=== PATIENT | female | born 1960 | race Caucasian/White ===

== ENCOUNTER 2018-03-13 21:27 | Emergency (ER) | payer BC, SELFPAY ==
[2018-03-13 21:28] VITALS: BP 141/82; PULSE 80; RESP 18; TEMP 36.4; O2SAT 98; BMI 27.9
[2018-03-13 21:56] VITALS: O2SAT 95
[2018-03-13] MEDS: Aspirin 81 MG TAB.CHEW 324 MG PO (21:57)
[2018-03-13] MEDS: 0.9% Normal Saline 1,000 ML 150 ML IV (21:57)
[2018-03-13 22:07] LABS: Absolute Lymphocyte Count 3.06 X10^3/ul (0.83-4.51); Absolute Neutrophil Count 4.7 X10^3/uL (2.0-7.7); Basophil# 0.04 X10^3/uL; Basophil% 0.5 % (0-1); Eosinophil# 0.37 X10^3/uL; Eosinophils% 4.3 % (0-5); Hematocrit 41.7 % (37-47); Hemoglobin 14.1 g/dl (12.0-15.0); Lymphocyte # 3.06 X10^3/ul (4.0); Lymphocyte % 35.7 % (19-41); Mean Corp Hgb Conc 33.8 g/gl (32-36); Mean Corpuscular Hgb 30.7 pg (27.0-32.0); Mean Corpuscular Volume 90.8 fL (81-99); Mean Platelet Vol. 8.6 fl (6.2-12.0); Monocyte# 0.43 X10^3/uL; Neutrophil # 4.65 X10^3/uL (2.7-7.7); Neutrophil % 54.4 % (47-70); Platelet Count 305 K/mm3 (150-450); RBC Distribution Width CV 12.8 % (11.6-14.6); RBC Distribution Width SD 42.4 fl (35.1-43.9); Red Blood Count 4.59 M/mm3 (4.2-5.4); White Blood Count 8.6 K/mm3 (4.4-11.0)
[2018-03-13 22:10] LABS: Differential Indicated SCAN CRITERIA MET; POSITIVE COUNT NO; POSITIVE DIFFERENTIAL NO; POSITIVE MORPHOLOGY YES
[2018-03-13 22:28] VITALS: BP 134/58; PULSE 87; RESP 22; O2SAT 97
[2018-03-13 22:32] LABS: Anion Gap 7 (5-15); BUN 16 mg/dL (7-18); BUN/Creat Ratio 21.1 RATIO (10-20); Calcium,Total 9.1 mg/dL (8.5-10.1); Chloride 106 mmol/L (98-107); Creatinine, Serum 0.76 mg/dL (0.55-1.02); EST Glomerular Filtration Rate 84 mL/min (>60); Est Glom Filt Rate - Afr Amer 102 mL/min (>60); Estimated Creatinine Clearance 84.37 ml/min; Glucose 121 mg/dL (74-106); Potassium 3.8 mmol/L (3.5-5.1); Sodium Level 142 mmol/L (136-145)
[2018-03-13 23:00] VITALS: BP 130/73; PULSE 64; RESP 14; O2SAT 96
--- NOTE | 2018-03-13 23:16 | ED.VISSUMM ---
- ER Visit Summary Date of Service: 03/13/18 Chief Complaint: Chest pain History of Present Illness: The patient is a [address] Wall and Dr. Britt. She reports that approximately an hour ago she had the onset of a substernal pressure. States that it lasted approximately 5 minutes. Was 5 out of 10 at worst and she is pain-free currently. It was worsened by nothing. She reports that it was relieved by walking around. She denies any associated nausea, vomiting, shortness of breath, or diaphoresis. However, she does report that she has been nauseated throughout the day today. Patient has a history of coronary disease and has 6 stents. She reports her last heart catheterization was approximately 2 years ago. Her last stress test was approximately 1 year ago. Physical Examination: Vitals: Stable. Afebrile. General: Well-nourished and well-developed. Head: Normocephalic atraumatic. Neck: Supple, no lymphadenopathy. No JVD. Nontender. Cardiovascular: Regular rate and rhythm. No murmurs. Respiratory: No respiratory distress. Clear to auscultation bilaterally. Abdominal: Soft, nontender, nondistended, normal bowel sounds. No guarding, rebound, or peritoneal signs. Back: Nontender. Extremities: Nontender, no edema. Skin: Normal color, no rash. Neurologic: Alert and oriented ?3. Cranial nerves II through XII are intact. Normal strength and sensation. Psych: Normal affect. Test Results: EKG is sinus at [address] changes. Troponins negative. Chem-7 is more for glucose 121. CBC is normal. Chest x-ray is normal. Emergency Department Course and Treatment: Patient was treated with a dose of aspirin. She is remained pain-free while here. Treatment Plan: Patient was discussed with the hospitalist. She will be admitted for further evaluation and treatment. Disposition: Admitted in improved condition. Impression: 1. Chest pain. 2. JACINTO score 3. This note was generated with [employer] dictation software. It may contain incorrect words, spelling, and punctuation that were not noted in review of the chart prior to signing ED Disposition - Plan for ED Patient: Chief Complaint: Chest Pain Referrals: Sam Britt MD [Primary Care Provider] -
--- NOTE | 2018-03-14 | ED.DEP ---
ED Disposition - Plan for ED Patient: Chief Complaint: Chest Pain Instructions: ED Chest Pain Atypical Unkn Cause Referrals: Herve Wall MD [STAFF PHYSICIAN] - As soon as possible
[2018-03-14 00:08] VITALS: BP 130/73; PULSE 63; RESP 18; O2SAT 97
--- NOTE | 2018-03-14 00:09 | ED.RN ---
PT CHOOSING TO LEAVE AMA. DR. TAVAREZ PREVIOUSLY AT BEDSIDE TO DISCUSS THIS IN DETAIL. REVIEWED D/C INSTRUCTIONS, FOLLOW UP CARE, AND S/S THAT WOULD WARRANT A RETURN TO THE ED WITH PT. PT VERBALIZED AN UNDERSTANDING AND DENIES FURTHER QUESTIONS FOR THIS RN. PT SKIN P/W/D, RESP EVEN AND UNLABORED, PT A&O X 3, NO DISTRESS NOTED. PT AMBULATED OUT OF ED, GAIT STEADY.
== END 2018-03-14 00:10 | disposition left against medical advice (07) ==
LOC: ED 22:10
PROVIDERS: Emergency Provider Emergency Medicine; Family Provider Family Medicine; PCP Family Medicine
DX: R07.9 Chest pain, unspecified (principal); R11.0 Nausea; I25.10 Atherosclerotic heart disease of native coronary artery without angina pectoris; J44.9 Chronic obstructive pulmonary disease, unspecified; I10 Essential (primary) hypertension; Z72.0 Tobacco use; Z79.02 Long term (current) use of antithrombotics/antiplatelets; Z79.82 Long term (current) use of aspirin; Z79.899 Other long term (current) drug therapy; Z95.5 Presence of coronary angioplasty implant and graft
CPT/HCPCS: 71045; 80048; 84484; 85025; 93005; 99285; A4216

== ENCOUNTER 2018-03-14 10:43 | Observation (INO) | payer BC, SELFPAY ==
[2018-03-14] VITALS (9 sets, daily range): BP systolic 101–134; BP diastolic 67–83; PULSE 58–84; RESP 16–20; TEMP 36.1–37.2; O2SAT 94–98; BMI 27.6; BMI 27.7
--- NOTE | 2018-03-14 11:06 | ED.VISSUMM ---
- ER Visit Summary Date of Service: 03/14/18 Chief Complaint: Chest pain History of Present Illness: The patient is a 57 F was actually seen in the ER yesterday by Dr. Mick López. I had a negative cardiac workup. However has a good story of chest pressure and tightness with associated nausea and shortness of breath. This is associated with exertion. She has a known history of a prior RI, CAD and has 6 cardiac stents. Her most recent stress test was 2-3 years ago. She has had no recent cardiac catheterizations. Last night on her ER evaluation Dr. López was planning on admitting her she could not stay at that time take care of some things at home and is back today to be admitted. Currently she is pain-free. She denies any melena, fever, vomiting or diarrhea. Physical Examination: Well-appearing middle-age female. Vital signs stable afebrile. Pulse ox 98% on room air no signs of hypoxia. H EENT exam unremarkable. Neck nontender no lymphadenopathy. Lungs clear to auscultation bilaterally. Heart regular rate and rhythm no murmur. Chest wall nontender. Abdomen is soft and nontender. Normal bowel sounds no peritoneal signs. She is moving all 4 extremities. They are neurovascularly intact. Calves are nontender without edema or cords. Neurologically she is awake and alert without focal motor deficits. Test Results: CBC, BMP and troponin were all normal yesterday. EKG and chest x-ray are unremarkable. Emergency Department Course and Treatment: I will speak to the hospitalist about admitting for stress testing or further cardiac evaluation. Treatment Plan: Admission for further evaluation. I spoke to Dr. Mar Allen the hospitalist who will admit the patient to PCU. Disposition: Admission Impression: Acute chest pain dyspnea of uncertain etiology History of prior RI, CAD and 6 cardiac stents. Anticoagulated on Plavix and aspirin This note was generated with [employer] dictation software. It may contain incorrect words, spelling, and punctuation that were not noted in review of the chart prior to signing ED Disposition - Plan for ED Patient: Chief Complaint: Chest Pain Referrals: Sam Britt MD [Primary Care Provider] -
--- NOTE | 2018-03-14 11:09 | ED.DCSUM_ITS ---
- ER Visit Summary Date of Service: 03/14/18 Chief Complaint: Chest pain History of Present Illness: The patient is a 57 F was actually seen in the ER yesterday by Dr. Mick López. I had a negative cardiac workup. However has a good story of chest pressure and tightness with associated nausea and shortness of breath. This is associated with exertion. She has a known history of a prior [place], CAD and has 6 cardiac stents. Her most recent stress test was 2-3 years ago. She has had no recent cardiac catheterizations. Last night on her ER evaluation Dr. López was planning on admitting her she could not stay at that time take care of some things at home and is back today to be admitted. Currently she is pain-free. She denies any melena, fever, vomiting or diarrhea. Physical Examination: Well-appearing middle-age female. Vital signs stable afebrile. Pulse ox 98% on room air no signs of hypoxia. H EENT exam unremarkable. Neck nontender no lymphadenopathy. Lungs clear to auscultation bilaterally. Heart regular rate and rhythm no murmur. Chest wall nontender. Abdomen is soft and nontender. Normal bowel sounds no peritoneal signs. She is moving all 4 extremities. They are neurovascularly intact. Calves are nontender without edema or cords. Neurologically she is awake and alert without focal motor deficits. Test Results: CBC, BMP and troponin were all normal yesterday. EKG and chest x- ray are unremarkable. Emergency Department Course and Treatment: I will speak to the hospitalist about admitting for stress testing or further cardiac evaluation. Treatment Plan: Admission for further evaluation. I spoke to Dr. Mar Allen the hospitalist who will admit the patient to PCU. Disposition: Admission Impression: Acute chest pain dyspnea of uncertain etiology History of prior TN, CAD and 6 cardiac stents. Anticoagulated on Plavix and aspirin This note was generated with [employer] dictation software. It may contain incorrect words, spelling, and punctuation that were not noted in review of the chart prior to signing ED Disposition - Plan for ED Patient: Chief Complaint: Chest Pain Referrals: Sam Britt MD [Primary Care Provider] -
--- NOTE | 2018-03-14 11:09 | PCM.HP.STD ---
Problem List (1) Chest pain Status: Acute Qualifiers: Chest pain type: unspecified Qualified Code(s): R07.9 - Chest pain, unspecified (2) Tobacco use Status: Chronic (3) HTN (hypertension) Status: Chronic Qualifiers: Hypertension type: essential hypertension Qualified Code(s): I10 - Essential (primary) hypertension (4) Overweight (BMI 25.0-29.9) Status: Chronic (5) Atherosclerotic heart disease of elem coronary artery without angina pectoris Status: Chronic Qualifiers: Samish vs. transplanted heart: unspecified whether elem or transplanted heart Qualified Code(s): I25.10 - Atherosclerotic heart disease of elem coronary artery without angina pectoris (6) Hyperlipidemia Status: Chronic Qualifiers: Hyperlipidemia type: unspecified Qualified Code(s): E78.5 - Hyperlipidemia, unspecified (7) Heavy alcohol use Status: Chronic History of Present Illness Date of Admission: 03/14/18 Chief Complaint: Chest pain The patient is a 57 y/o F w/ PMHx: CAD s/p PCI 11/30/2015 Summa w/ mid RCA x 2, prox RCA x 2, mid LAD x 2, HTN, HLD, Tobacco use, Overweight who presents to the [facility] ED on 03/14/18 with history of chronic generalized chest discomfort following her PCI intervention 2015 with new onset increased pressure, tightness across her chest w/ associated dyspnea, occurring following lunch at work and following exertion, rated 10/10 without radiation, who initially presented on 03/13/18 to the ED and declined admission at that time secondary to responsibilities that needed arranged with return to the ED this AM for further evaluation. In the ED work-up included T 97, heart rate 84, BP 1 3483, respiratory rate 18, 98% room air, remarkable CBC, BMP notable only for glucose 121, cardiac enzymes normal EKG unremarkable with no acute evidence of ischemia, chest x-ray with chronic changes. Patient noted that her chest discomfort had resolved prior to presentation to the ED initially the evening prior and has not returned, lasting only 2-5 minutes at that time. Past Medical History Past Medical History (Chronic Problems): Chronic Problems (Last Updated 12/12/17 @ 08:52 by Breanna Soria) Tobacco use (Chronic) HTN (hypertension) (Chronic) Overweight (BMI 25.0-29.9) (Chronic) Heavy alcohol use (Chronic) History of heart artery stent (Chronic) LHC/PCI-URIEL to mid & prox LAD & URIEL to mid & prox RCA - 11/30/2015 Atherosclerotic heart disease of elem coronary artery without angina pectoris (Chronic) Hyperlipidemia (Chronic) Medical History: Medical History (Last Updated 12/12/17 @ 08:52 by Breanna Soria) Old inferior wall myocardial infarction (Resolved) I25.2 Atherosclerotic heart disease of elem coronary artery without angina pectoris (Chronic) I25.10 Hyperlipidemia (Chronic) E78.5 Allergies beeswax Allergy (Verified 03/14/18 10:46) Swelling Home Medications: Ambulatory Orders Medication Instructions Recorded Nitroglycerin [Nitrostat] 0.4 mg SUBLINGUAL Q5M PRN 12/13/15 metoprolol tartrate 25 mg tablet 25 mg PO BID #180 tab 09/18/17 ezetimibe 10 mg tablet 10 mg PO QDAY #30 tab 01/08/18 clopidogrel 75 mg tablet 75 mg PO DAILY #90 tab 01/28/18 aspirin 81 mg tablet,delayed 81 mg PO DAILY #90 tab 03/13/18 release lisinopril 10 mg tablet 10 mg PO QDAY #90 tab 03/13/18 Surgical History: Surgical History (Last Updated 12/12/17 @ 08:53 by Breanna Soria) History of throat surgery (Resolved) Z98.890 History of heart artery stent (Chronic) Z95.5 LHC/PCI-URIEL to mid & prox LAD & URIEL to mid & prox RCA - 11/30/2015 Surgical History: - - Plaque removal on esophagous, PCI x 6 in 2016, BLTL. 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 Tobacco Use: Cigarettes Alcohol: Heavy - Patient notes 2-4 smaller beers per day. Drugs: None - *Family History Maternal Family History: Family History (Last Updated 12/12/17 @ 08:53 by Breanna Soria) Mother CAD (coronary artery disease) Brother CAD (coronary artery disease) History Items: Diabetes, Heart Disease, Hypertension Paternal Family History: Family History (Last Updated 12/12/17 @ 08:53 by Breanna Soria) Mother CAD (coronary artery disease) Brother CAD (coronary artery disease) History Items: Cancer, Diabetes, Heart Disease, Hypertension Review of Systems Constitutional: Reports: Malaise, Fatigue. Denies: Chills, Fever, Weight Change HEENT: Denies: Head Aches, Sinus Congestion, Sinus Drainage Cardiovascular: Reports: Chest Pressure, Chest Tightness, Heaviness. Denies: Chest Pain, Palpitations Respiratory: Reports: Shortness of breath upon exertion. Denies: Cough, Shortness of breath at rest, Sputum production Gastrointestinal: Denies: Abdominal Pain, Nausea, Vomiting Genitourinary: Denies: Dysuria Musculoskeletal: Denies: Joint Pain, Joint Tenderness Skin: Denies: Rash, Wounds Neurological: Denies: Numbness, Tingling, Focal weakness Psychiatric: Denies: Anxiety, Depression, Homicidal Ideations, Suicidal Ideations Hematologic/ Lymphatic: Reports: Easy Bruising, Easy Bleeding VTE Information - Inpt Only VTE Present on Admission: No VTE Mechan Device Prophylaxis: SCD's VTE Pharm Prophylaxis ordered?: Yes Subjective: Seated upright in bed, no acute distress, no recurrent chest discomfort. Objective: Physical Examination: General: awake, alert, oriented x 3 and cooperative, seated upright in bed in no apparent distress. Skin: normal color, turgor, no icterus, cyanosis. HEENT: AT/NC, EOMI, PERRLA, MMM, no carotid bruits or JVD noted. Lungs: CTA bilaterally, moderate effort, mild decrease BL bases, no rales, ronchi or wheezing. Heart: Regular rate and rhythm; no gallop, rub audible. Abdomen: soft, overweight, NTTP, ND, normal BS, no HSM. Extremities: no cyanosis, clubbing, or edema. Neurological: patient awake, alert, oriented x 3; cognitive function intact; pupils equally reactive to light and accomodation; cranial nerves II-XII grossly normal, moving all 4 extremities, no focal deficits, strength mildly globally decreased. Psychiatric: affect appears to be fatigued, no acute evidence of depressive or anxiety feelings. 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 (Acute) Dyspnea, unspecified (Acute) Chest pain (Acute) The patient is a 57 y/o F w/ PMHx: CAD s/p PCI 11/30/2015 [place] w/ mid RCA x 2, prox RCA x 2, mid LAD x 2, HTN, HLD, Tobacco use, Overweight who presents to the [facility] ED on 03/14/18 with history of chronic generalized chest discomfort following her PCI intervention 2015 with new onset increased pressure, tightness across her chest w/ associated dyspnea, occurring following lunch at work and following exertion, rated 10/10 without radiation, who initially presented on 03/13/18 to the ED and declined admission at that time secondary to responsibilities that needed arranged with return to the ED this AM for further evaluation. (1) Chest Pain: ED work-up included T 97, heart rate 84, BP 1 3483, respiratory rate 18, 98% room air, remarkable CBC, BMP notable only for glucose 121, cardiac enzymes normal EKG unremarkable with no acute evidence of ischemia, chest x-ray with chronic changes. Will admit to PCU, place on a monitored bed to assure no acute myocardial infarction with serial cardiac enzymes and EKGs. Patient is unable to perform exercise and does have history of PCI, thus will proceed with AM nuclear stress testing. ASA, NG. FLP in AM. Mag pending. (2) CAD: s/p PCI 2016 x 6 w/ mid RCA x 2, prox RCA x 2, mid LAD x 2, following w/ Dr. Wall, will continue home regimen asa, plavix, not on statin, BB. (3) Hypertension: Continue home regimen including lisinopril, metoprolol, PRN hydralazine. (4) Hyperlipidemia: Continue home Zetia regimen, clear why not on statin. AM FLP. (5) Tobacco Abuse: Encouraged cessation, inpatient consultation per RT, NR if desired. (6) Heavy EtOH Use: Patient notes routine consumption of 2-4 12 ounce beers per day. Will maintain on MVI, thiamine and folic acid. Encouraged sobriety or reduction to 1-2 drinks per setting or max 7 drinks/week. (7) DVT prophylaxis: SCDs, Lovenox. Code Visit OBSV E&M: 49522 Initial observation care L3
[2018-03-14 16:28] LABS: Phosphorus 3.1 mg/dL (2.5-4.9)
[2018-03-14] MEDS: Metoprolol Tartrate 25 MG Tablet PO (21:29)
[2018-03-14] MEDS: 0.9% Normal Saline 1,000 ML 100 ML IV (23:45)
[2018-03-15] VITALS (7 sets, daily range): BP systolic 91–113; BP diastolic 56–62; PULSE 56–64; RESP 16–18; TEMP 36.6–36.9; O2SAT 95–96
[2018-03-15] MEDS: Lisinopril 10 MG Tablet PO (06:36)
[2018-03-15] MEDS: Aspirin E.C. 81 MG Tablet PO (06:36)
[2018-03-15] MEDS: Clopidogrel Bisulfate 75 MG Tablet PO (06:36)
[2018-03-15 07:10] LABS: Hematocrit 41.9 % (37-47); Hemoglobin 14.5 g/dl (12.0-15.0); Mean Corp Hgb Conc 34.6 g/gl (32-36); Mean Corpuscular Hgb 31.5 pg (27.0-32.0); Mean Corpuscular Volume 90.9 fL (81-99); Mean Platelet Vol. 8.7 fl (6.2-12.0); Platelet Count 322 K/mm3 (150-450); RBC Distribution Width CV 12.7 % (11.6-14.6); RBC Distribution Width SD 41.5 fl (35.1-43.9); Red Blood Count 4.61 M/mm3 (4.2-5.4); Scan Indicated on CBC? Y/N NO; White Blood Count 6.3 K/mm3 (4.4-11.0)
[2018-03-15 07:11] LABS: International Normalized Ratio 0.9; Partial Thromboplast Time 31.3 Seconds (24.1-36.2); Prothrombin Time (Protime)PT. 12.4 SECONDS (11.7-14.9)
[2018-03-15 07:36] LABS: ALB/GLOB Ratio 1.1 RATIO (0.9-2.4); AST(SGOT) 16 U/L (15-37); Alanine Aminotransfer ALT/SGPT 24 U/L (13-56); Albumin, Serum 3.2 g/dL (3.2-5.0); Alkaline Phosphatase 72 U/L (45-117); Anion Gap 9 (5-15); BUN 13 mg/dL (7-18); BUN/Creat Ratio 21.4 RATIO (10-20); Calcium,Total 7.9 mg/dL (8.5-10.1); Chloride 110 mmol/L (98-107); Cholesterol 146 mg/dL (200); Creatinine, Serum 0.61 mg/dL (0.55-1.02); EST Glomerular Filtration Rate 109 mL/min (>60); Est Glom Filt Rate - Afr Amer 131 mL/min (>60); Estimated Creatinine Clearance 105.12 ml/min; Globulin 2.9 g/dL (2.2-4.2); Glucose 90 mg/dL (74-106); High Density Lipoprotein 32 mg/dL; Potassium 4.1 mmol/L (3.5-5.1); Protein, Total 6.1 g/dL (6.4-8.2); Sodium Level 143 mmol/L (136-145); Triglycerides 147 mg/dL; Very Low Density Lipoprotein 29 mg/dL (5-40)
--- NOTE | 2018-03-15 09:53 | CASEMGMT ---
Social Work Note Per H+P pt has history of alcohol abuse. SW attempted to meet with pt. Pt off floor for stress test. SW will attempt to see pt at a later time as time allows. Veda Goetz FURNITURE UPHOLSTERER, LIBRARY HELPER
--- NOTE | 2018-03-15 10:11 | STRESSREP ---
Stress Test Report Pharmacologic myocardial perfusion stress test. 57-year-old lady with a history of chest pain. Next Stress protocol: Resting EKG demonstrates normal sinus rhythm with a rate of 70 bpm normal intervals and noted. 0.4 mg of regadenoson was infused per usual protocol followed by rapid intravenous saline flush injection. Continuous EKG monitoring was performed. Patient maintained sinus rhythm throughout the recording. The maximum heart rate was 91 bpm which was 55% maximum predicted heart rate the maximum workload was 1 metabolic equivalent. At rest there were no ST or T-wave changes noted suggest abnormal flow reserve. Myocardial perfusion protocol. 11.8 mCi of technetium 99m sestamibi was injected at rest. 0.4 mg of regadenoson was infused per usual protocol peak infusion 35.5 mCi of technetium 99m sestamibi was injected stress images were obtained stress and rest images were reconstructed and compared in the short axis vertical long horizontal long axis. Gated images were also obtained pre- Perfusion SPECT analysis: Review of the stress images demonstrate normal uptake of tracer noted in all areas of the myocardium. The resting images similarly demonstrate normal uptake of tracer noted in all areas of the myocardium. No obvious areas of reversibility are noted suggest ischemia and no obvious previous infarct is noted. Gated SPECT analysis: The gated ejection fraction is 71%. Conclusion: Normal pharmacologic myocardial perfusion stress test. Preserved ejection fraction.
--- NOTE | 2018-03-15 10:31 | PCM.DC ---
- Discharge Diagnoses Current Active Problems: Current Active and Chronic Problems (Last Updated 12/12/17 @ 08:52 by Breanna Soria) (1) Chest Pain, non-cardiac, unclear specific etiology, possible GERD versus musculoskeletal (2) CAD s/p PCI 2016 x 6 w/ mid RCA x 2, prox RCA x 2, mid LAD x 2 (3) Hypertension (4) Hyperlipidemia (5) Tobacco Abuse (6) Heavy EtOH Use You will use the following diet at home:: Cardiac Your food should be the consistency of: Regular Your liquids should be the consistency of: Regular/Thin Discharge Activity: Return to Normal Activity May resume sexual activity in: No Restrictions Call your doctor if you observe: Fever of 101 or Higher, Inability to urinate, Inability to have a bowel movement, Shortness of breath, Dizziness, Chest pain, Uncontrolled pain Instructions: ED Chest Pain NonCardiac, ED Chest Pain Atypical Unkn Cause, Tips for Quitting Smoking (Cardiovascular), Why Do You Smoke?, Planning to Quit Smoking, Getting Support for Quitting Smoking, Coping with Smoking Withdrawal, Understanding Alcoholism, Alcoholism: Myths and Facts, The Impact of Alcoholism, Signs of Addiction: Social Use Additional Instructions: The chest pain you experienced is not from your heart. The stress test is negative and your heart squeezed normally. The cardiac cath tech you wore showed no problem with the rhythm of your heart. Additionally, the cardiac enzyme series performed remained normal. Sometimes chest pain can come from a problem with the muscles or skeleton and/or associated with straining or doing some strenuous activity you do not normally perform. Generally Aleve or Motrin will help allieviate this discomfort if these medications are appropriate for you to take. Chest pain can also be associated with anxiety and with this you frequently have racing heart, trouble sleeping and irritability. It can also come from gastroesophageal reflux disease or heartburn. People who smoke experience increased heartburn because nicotine decreases the pressure in the lower esophageal sphincter and causes reflux. This type of discomfort is well treated with drinking a large glass of cold water which strips the acid out of the esophagus or taking Mylanta, Maalox or Pepto-Bismol. Other foods to avoid if you have reflux are chocolate, peppermint and calcium containing products such as Tums. Allergies/Adverse Reactions: Allergies beeswax Allergy (Verified 03/14/18 10:46) Swelling Medications to take at Discharge Nitroglycerin [Nitrostat] 0.4 mg SUBLINGUAL Q5M PRN 12/13/15 metoprolol tartrate 25 mg tablet 25 mg PO BID #180 tab 09/18/17 ezetimibe 10 mg tablet 10 mg PO QDAY #30 tab 01/08/18 clopidogrel 75 mg tablet 75 mg PO DAILY #90 tab 01/28/18 aspirin 81 mg tablet,delayed release 81 mg PO DAILY #90 tab 03/13/18 lisinopril 10 mg tablet 10 mg PO QDAY #90 tab 03/13/18 Nicotine [Nicoderm Cq] 21 mg TRANSDERM. DAILY #14 patch 03/15/18 The following prescriptions were given: Nicotine [Nicoderm Cq] 21 mg TRANSDERM. DAILY #14 patch Primary Care Physician: Sam Britt MD [Primary Care Provider] - Please follow up with your Primary Care Physician in: Follow-up 3-5 days to review admission. Test Results: Test results from this visit will be discussed in further detail at your follow-up appointment, if applicable. Please Follow Up With: Herve Wall MD When: Please follow-up with your sales lead as previously arranged. Proposed Discharge Date: 03/15/18
--- NOTE | 2018-03-15 10:35 | PCM.DC.SUM ---
Discharge Date and Diagnosis Date of Admission: 03/14/18 Date of Discharge: 03/15/18 - Primary Discharge Diagnosis (1) Chest Pain, non-cardiac, unclear specific etiology, possible GERD versus musculoskeletal (2) CAD s/p PCI 2016 x 6 w/ mid RCA x 2, prox RCA x 2, mid LAD x 2 (3) Hypertension (4) Hyperlipidemia (5) Tobacco Abuse (6) Heavy EtOH Use - Secondary Discharge Diagnosis Chronic Problems (Last Updated 12/12/17 @ 08:52 by Breanna Soria) Tobacco use (Chronic) HTN (hypertension) (Chronic) Overweight (BMI 25.0-29.9) (Chronic) Heavy alcohol use (Chronic) History of heart artery stent (Chronic) LHC/PCI-URIEL to mid & prox LAD & URIEL to mid & prox RCA - 11/30/2015 Atherosclerotic heart disease of [place] coronary artery without angina pectoris (Chronic) Hyperlipidemia (Chronic) Hospital Course and Treatment Operations: None Procedures: EKG, Stress test Summary of Care Provided: The patient is a 57 y/o F w/ PMHx: CAD s/p PCI 11/30/2015 [place] w/ mid RCA x 2, prox RCA x 2, mid LAD x 2, HTN, HLD, Tobacco use, Overweight who presented to the [facility] ED on 03/14/18 with history of chronic generalized chest discomfort following her PCI intervention 2015 with new onset increased pressure, tightness across her chest w/ associated dyspnea, occurring following lunch at work and following exertion, rated 10/10 without radiation, who initially presented on 03/13/18 to the ED and declined admission at that time secondary to responsibilities that needed arranged with return to the ED this AM for further evaluation. In the ED work-up included T 97, heart rate 84, BP 1 3483, respiratory rate 18, 98% room air, remarkable CBC, BMP notable only for glucose 121, cardiac enzymes normal EKG unremarkable with no acute evidence of ischemia, chest x-ray with chronic changes. Patient noted that her chest discomfort had resolved prior to presentation to the ED initially the evening prior and has not returned, lasting only 2-5 minutes at that time. The patient was admitted to PCU, maintained on cardiac telemetry, serial cardiac enzymes were obtained as well as serial EKGs which remained unremarkable. Patient underwent AM nuclear stress testing which was noted to be negative for inducible ischemia. FLP was obtained during admission and noted to be normal except low HDL and she was continued on her cholesterol regimen. In addition, encouraged tobacco cessation, inpatient consultation per RT, NR rx given on discharge. Additionally, patient during admission admitted to Heavy EtOH Use w/ routine consumption of 2-4 12 ounce beers per day. She was maintained on MVI, thiamine and folic acid, mag and phos normal, encouraged reduction in her daily EtOH intake or sobriety. Patient was discharged to home in stable condition with recommendation for follow-up with primary care physician within 3-5 days and continue routine evaluation per her Director Camp. DAY OF DISCHARGE PROGRESS NOTE: Subjective: Patient without acute event overnight per self and nursing report. Patient denies fever, chills, nausea, emesis, abdominal pain, recurrent or worsened chest pain or dyspnea. Patient agreeable to discharge to home. Patient will be discharged with follow-up with primary care physician within 3-5 days in addition to continuation of her routine Cardiology follow-up. Objective: T 97.8, heart rate 61, BP 113/62, respiratory rate 18, 96% on room air. Physical Examination: General: awake, alert, oriented x 3 and cooperative, seated upright in the bed, NAD. Skin: normal color, turgor, no icterus, cyanosis. HEENT: AT/NC, EOMI, PERRLA, MMM. Lungs: Diminished BS BL bases, moderate effort, no rales, ronchi or wheezing; Heart: Regular rate and rhythm; no gallop, rub audible. Abdomen: soft, NTTP, ND, normal BS. Extremities: no cyanosis, clubbing, or edema. Neurological: patient awake, alert, oriented x 3; cognitive function appears intact upon questioning,; pupils equally reactive to light and accomodation; cranial nerves II-XII grossly normal, moving all 4 extremities, strength appropriate. Psychiatric: affect appears normal, no acute evidence of depressive or anxiety feelings. Assessment and Plan: Please see hospital summary above. Discharge Activity: Return to Normal Activity May resume sexual activity in: No Restrictions Call your doctor if you observe: Fever of 101 or Higher, Inability to urinate, Inability to have a bowel movement, Shortness of breath, Dizziness, Chest pain, Uncontrolled pain Home Medications: Medications to take at Discharge Nitroglycerin [Nitrostat] 0.4 mg SUBLINGUAL Q5M PRN 12/13/15 metoprolol tartrate 25 mg tablet 25 mg PO BID #180 tab 09/18/17 ezetimibe 10 mg tablet 10 mg PO QDAY #30 tab 01/08/18 clopidogrel 75 mg tablet 75 mg PO DAILY #90 tab 01/28/18 aspirin 81 mg tablet,delayed release 81 mg PO DAILY #90 tab 03/13/18 lisinopril 10 mg tablet 10 mg PO QDAY #90 tab 03/13/18 Nicotine [Nicoderm Cq] 21 mg TRANSDERM. DAILY #14 patch 03/15/18 Following Prescrptions Were Given to Patient: Nicotine [Nicoderm Cq] 21 mg TRANSDERM. DAILY #14 patch Primary Care Physician: Sam Britt MD [Primary Care Provider] - Please follow up with your Primary Care Physician in: Follow-up 3-5 days to review admission. 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 Patient Instructions: Tips for Quitting Smoking (Cardiovascular), Understanding Alcoholism, Alcoholism: Myths and Facts, The Impact of Alcoholism, Signs of Addiction: Social Use, Why Do You Smoke?, Planning to Quit Smoking, Getting Support for Quitting Smoking, Coping with Smoking Withdrawal, ED Chest Pain NonCardiac, ED Chest Pain Atypical Unkn Cause Disposition: Home Minutes spent on discharge:: 20 Patient Condition:: Fair Medical Necessity - Tobacco Use Smoking Status: Current every day smoker Tobacco Use: Cigarettes Meaningful Use Info Meaningful Use Diagnoses (Choose all that apply): None applicable Code Visit OBSV E&M: 21000 Observation care discharge
[2018-03-15] MEDS: Famotidine 20 MG Tablet PO (11:26)
[2018-03-15] MEDS: Ezetimibe 10 MG Tablet PO (11:26)
--- NOTE | 2018-03-15 11:40 | NURSING ---
Patient bp at discharge 96/60. Asymptomatic. Denies lightheadedness/dizziness. Informed patient that RN would discuss with Dr. Allen bp. Patient states that she is going home and feels fine despite RN wanting to speak with MD about bp. Patient discharged home.
== END 2018-03-15 10:34 | disposition home or self-care (01) ==
LOC: ED 11:02 → PCU 11:26
PROVIDERS: Admitting Provider Family Medicine; Emergency Provider Emergency Medicine; Family Provider Family Medicine; PCP Family Medicine; Visit Provider Family Medicine
DX: R07.89 Other chest pain (principal); I25.10 Atherosclerotic heart disease of native coronary artery without angina pectoris; I10 Essential (primary) hypertension; E78.5 Hyperlipidemia, unspecified; F17.210 Nicotine dependence, cigarettes, uncomplicated; I25.2 Old myocardial infarction; Z95.5 Presence of coronary angioplasty implant and graft; Z79.899 Other long term (current) drug therapy; Z79.02 Long term (current) use of antithrombotics/antiplatelets; Z79.82 Long term (current) use of aspirin
CPT/HCPCS: 36415; 78452; 80053; 80061; 83735; 84100; 84484; 85027; 85610; 85730; 93005; 93017; 96360; 96361; 99218; 99281; 99406; A9500; J7030; A4216; G0378; J2785

== ENCOUNTER → 2018-11-26 06:37 | Outpatient (CLI) | payer BC, SELFPAY ==
[2018-08-05 14:02] VITALS: BMI 27.2
--- NOTE | 2018-11-26 08:55 | STRESSREP ---
Stress Test Report Date: 11-26-18 Procedure: Exercise tolerance test/imaging study Indications: Chest pain; PAD; DC-remote; PCI Consent: Per the patient Procedure: The patient exercised on a Benigno protocol for 9 minutes completing stage III achieving a peak heart rate of 142 bpm (87 % predicted maximal heart rate) with a peak blood pressure 134/64 mmHg and a peak MET capacity of 10 METs. The baseline ECG demonstrated normal sinus rhythm. The peak exercise ECG demonstrated somatic/motion artifact with no obvious ECG changes. There was a rare PAC and PVC during exercise and a rare ventricular couplet during exercise. The functional capacity was considered good. There was no complaint of chest discomfort during exercise or recovery. The examination was discontinued secondary to dyspnea and leg discomfort. Impression: 1. Technically adequate (percent predicted maximal heart rate greater than 85%) exercise tolerance test 2. Peak exercise ECG with somatic/motion artifact with no obvious ECG changes 3. There was a rare PAC and PVC during exercise and a rare ventricular couplet during exercise 4. Nuclear images pending Myocardial perfusion imaging study: Technique: The patient was injected with 11.6 mCi of technetium 99m Cardiolite and subsequently rest SPECT Cardiolite nuclear imaging was obtained in the horizontal long, vertical long, and short axis views. The patient exercised on a Benigno protocol for 9 minutes completing stage III achieving a peak heart rate of 142 bpm (87 % predicted maximal heart rate) with a peak blood pressure 134/64 mmHg and a peak MET capacity of 10 METs. The patient was injected with 33.1 mCi of technetium 99m Cardiolite and subsequently stress SPECT Cardiolite nuclear imaging was obtained in the horizontal long, vertical long, and short axis views. A gated Cardiolite study at peak stress was obtained. Interpretation: Rest and stress SPECT Cardiolite nuclear imaging status post realignment, normalization, and attenuation correction, demonstrates the appearance of relative uniform tracer uptake and myocardial perfusion appearing within normal limits. There is end systolic thickening and brightening. The gated Cardiolite study demonstrates myocardial thickening and inward wall motion. The reported LVEF is 70%. Impression: 1. Rest and stress SPECT Cardiolite nuclear imaging demonstrate relative uniform tracer uptake and myocardial perfusion appearing within normal limits. 2. The gated Cardiolite study reports an LVEF of 70 %. This note was generated with [employer] software. It may contain incorrect words, spelling, and punctuation that were not noted in checking the note before signing.
== END ==
LOC: CVS 06:39
PROVIDERS: Family Provider Internal Medicine; PCP Internal Medicine; Referring Provider Nurse Practitioner Family; Visit Provider Nurse Practitioner Family
DX: R07.9 Chest pain, unspecified (principal)
CPT/HCPCS: 78452; 93017; A9500; A4216

== ENCOUNTER → 2020-03-23 17:38 | Outpatient (CLI) | payer BC, SELFPAY ==
[2019-06-23 07:29] VITALS: BMI 28.1
== END ==
LOC: MTDU 17:38
PROVIDERS: PCP Internal Medicine; Referring Provider Nurse Practitioner Acute Care; Visit Provider Nurse Practitioner Acute Care
DX: R05 Cough (principal)
CPT/HCPCS: 87635; 94799; U0003

== ENCOUNTER 2020-08-07 18:07 | Emergency (ER) | payer OTHER, SELFPAY ==
[2019-06-23 07:29] VITALS: BMI 28.1
[2020-08-07 18:09] VITALS: BP 132/78; PULSE 67; RESP 16; TEMP 36.9; O2SAT 98; BMI 29.0
--- NOTE | 2020-08-07 18:31 | ED.VISSUMM ---
- ER Visit Summary Date of Service: 08/07/20 Chief Complaint: Possible infections in her left thigh History of Present Illness: The patient is a 60 F who presents with possible infections in her left thigh. Patient states she has a history of psoriasis and had recent biopsy. Patient states she is scheduled to follow-up with her server support technician for results this week. Patient states she noted 2 areas that began developing pustules. These were not lesions that were biopsied. Patient denies any discharge or drainage. Patient denies any fevers or chills. Patient denies any nausea or vomiting. Patient states she has pain over these areas. Patient states the pain is sharp. Patient states the pain is worse with palpation. Physical Examination: Vital signs are stable. Patient is afebrile. Patient is in no acute distress. Skin is warm dry. There are 2 pustules noted in the medial and posterior aspects of the left distal thigh. There is no discharge or drainage. There is no fluctuance. The biopsy site is healing well. There is no discharge or drainage from there. There are multiple other lesions that are consistent with psoriasis. Sensation was intact to light touch bilateral in the lower extremities. Strength is 5/5 bilaterally in the lower extremities. Pedal pulses are equal bilaterally. Emergency Department Course and Treatment: Patient was given a dose of Keflex here. Patient was given a prescription for Keflex. Patient was instructed to follow-up with her primary care physician and server support technician as scheduled. Patient understood and was agreeable with the plan. All questions were answered. Disposition: Discharge home Impression: Left thigh pustules This note was generated with [employer] dictation software. It may contain incorrect words, spelling, and punctuation that were not noted in review of the chart prior to signing ED Disposition - Plan for ED Patient: Disposition: Home or Assisted Living Diagnosis: Psoriasis with pustules Prescriptions: Cephalexin [Keflex] 500 mg PO Q6 #40 cap Prescription Printed Referrals: Sarah Meredith MD [Primary Care Provider] - Keep Jorje appointment
[2020-08-07] MEDS: Cephalexin 500 MG Capsule PO (19:21)
[2020-08-07 19:22] VITALS: RESP 17
== END 2020-08-07 20:00 | disposition home or self-care (01) ==
LOC: ED 18:44
PROVIDERS: Emergency Provider Emergency Medicine; PCP Internal Medicine
DX: L08.9 Local infection of the skin and subcutaneous tissue, unspecified (principal); L40.9 Psoriasis, unspecified; I25.10 Atherosclerotic heart disease of native coronary artery without angina pectoris; I10 Essential (primary) hypertension; Z72.0 Tobacco use; Z79.02 Long term (current) use of antithrombotics/antiplatelets; Z79.82 Long term (current) use of aspirin; Z79.899 Other long term (current) drug therapy; Z95.5 Presence of coronary angioplasty implant and graft
CPT/HCPCS: 99283

== ENCOUNTER → 2020-09-21 11:05 | Outpatient (CLI) | payer OTHER, SELFPAY ==
[2020-09-21 12:12] LABS: Absolute Neutrophil Count 4.9 X10^3/uL (2.0-7.7); Basophil# 0.04 X10^3/uL; Basophil% 0.5 % (0-1); Eosinophil# 0.47 X10^3/uL; Eosinophils% 5.6 % (0-5); Hematocrit 43.4 % (37-47); Hemoglobin 14.5 g/dL (12.0-15.0); Lymphocyte % 29.8 % (19-41); Mean Corp Hgb Conc 33.4 g/dL (32-36); Mean Corpuscular Hgb 30.6 pg (27.0-32.0); Mean Corpuscular Volume 91.6 fL (81-99); Mean Platelet Vol. 8.7 fl (6.2-12.0); Monocyte# 0.42 X10^3/uL; NRBC Flagged by Analyzer 0 % (0-5); Neutrophil # 4.94 X10^3/uL (2.7-7.7); Neutrophil % 58.9 % (47-70); Platelet Count 337 K/mm3 (150-450); RBC Distribution Width CV 12.7 % (11.6-14.6); RBC Distribution Width SD 42.5 fl (35.1-43.9); Red Blood Count 4.74 M/mm3 (4.2-5.4); White Blood Count 8.4 K/mm3 (4.4-11.0)
[2020-09-21 12:55] LABS: AST(SGOT) 24 U/L (15-37); Alanine Aminotransfer ALT/SGPT 32 U/L (13-56); Albumin, Serum 4.1 g/dL (3.2-5.0); Alkaline Phosphatase 68 U/L (45-117); Anion Gap 5 (5-15); BUN 16 mg/dL (7-18); BUN/Creat Ratio 28.3 RATIO (10-20); Bilirubin, Direct 0.09 mg/dL (0.00-0.30); Calcium,Total 9.3 mg/dL (8.5-10.1); Chloride 106 mmol/L (98-107); Creatinine, Serum 0.57 mg/dL (0.55-1.02); EST Glomerular Filtration Rate 117 mL/min (>60); Est Glom Filt Rate - Afr Amer 141 mL/min (>60); Globulin 3.1 g/dL (2.2-4.2); Glucose 95 mg/dL (74-106); Potassium 4.1 mmol/L (3.5-5.1); Protein, Total 7.2 g/dL (6.4-8.2); Sodium Level 137 mmol/L (136-145)
[2020-09-21 13:27] LABS: Hepatitis B Surface Antibody Non-Reactive; Hepatitis B Surface Antigen Non-Reactive (Nonreactive); Hepatitis C Antibody Non-Reactive (Nonreactive)
[2020-09-28 16:09] LABS: QNTFERON TB Mitogen Value > 10.00 IU/mL (.); QNTFERON TB Nil Value 0.08 IU/mL (.); QNTFERON TB1+ Ag Value 0.04 IU/mL (.); QNTFERON TB2+ Ag Value 0.07 IU/mL (.)
[2020-09-28 20:57] LABS: Hepatitis B Core Ab Total Negative (Negative); QNTIFERON TB Positive Criteria Negative (Negative)
== END ==
LOC: MTLAB 11:07
PROVIDERS: PCP Internal Medicine; Referring Provider Dermatology; Visit Provider Dermatology
DX: L40.0 Psoriasis vulgaris (principal); L20.89 Other atopic dermatitis; Z79.899 Other long term (current) drug therapy
CPT/HCPCS: 36415; 80048; 80076; 85025; 86480; 86704; 86706; 86803; 87340

== ENCOUNTER → 2020-10-28 06:59 | Outpatient (CLI) | payer OTHER, SELFPAY ==
[2020-10-27 07:22] VITALS: BMI 26.9
--- NOTE | 2020-10-28 13:16 | STRESSREP ---
Stress Test Report Pharmacologic myocardial perfusion stress test. 60-year-old lady with a history of coronary artery disease. Stress protocol: Resting EKG demonstrates sinus bradycardia with a rate of 56 bpm normal intervals are noted resting blood pressure is 180/70 mmHg. 0.4 mg of regadenoson was infused per usual protocol followed by rapid intravenous saline flush injection continuous EKG monitoring was performed. The maximum heart rate was 79 bpm which was 48% of max impacted heart rate the maximum workload was 1 metabolic equivalent. At rest there were no ST or T wave changes noted to suggest abnormal flow reserve and at peak infusion nonspecific ST changes were noted. The final blood pressure was 106/72 mmHg. Myocardial perfusion protocol. 10.0 mCi of technetium 99m sestamibi was injected at rest. 0.4 mg of regadenoson was infused per usual protocol. At peak infusion 32.0 mCi of technetium 99m sestamibi was injected stress images were obtained stress and rest images were reconstructed and compared in the short axis vertical long and horizontal long axis. Gated images were also obtained. Perfusion SPECT analysis: Review of the stress images demonstrate moderately reduced perfusion noted in the mid anterior wall towards the apex. The septum, inferior wall and lateral wall appear to be well perfused. The resting images demonstrate improvement in the mid anterior wall suggesting mid anterior ischemia. The rest of the ho are normally perfused. No previous infarct is noted. Gated SPECT analysis: The gated ejection fraction is 50%. Conclusion: Abnormal pharmacologic myocardial perfusion stress test with evidence of mid anterior ischemia and a moderate zone. Preserved ejection fraction.
== END ==
PROVIDERS: PCP Internal Medicine; Referring Provider Internal Medicine Cardiovascular Disease; Visit Provider Internal Medicine Cardiovascular Disease
DX: I25.2 Old myocardial infarction (principal); Z95.5 Presence of coronary angioplasty implant and graft
CPT/HCPCS: 78452; 93017; A9500; A4216; J2785

== ENCOUNTER 2020-11-03 10:18 | Day surgery (SDC) | payer OTHER, SELFPAY ==
[2020-10-27 07:22] VITALS: BMI 26.9
--- NOTE | 2020-10-31 11:40 | RAD_ITS ---
INDICATION: CAD EXAMINATION/TECHNIQUE: X-RAY - XR Chest 2 Views COMPARISON: 03/13/2018. FINDINGS: The lungs are clear. Tortuous and calcified thoracic aorta. The heart is not enlarged. No pleural effusion or pneumothorax. No acute osseous abnormalities. RAD/Chest PA and Lateral IMPRESSION: No acute radiographic abnormalities. Electronically Signed: Samuel Kraus MD at 19:54 EDT Tel , Service support ,
[2020-10-31 13:31] LABS: Absolute Lymphocyte Count 2.63 X10^3/uL (0.83-4.51); Absolute Neutrophil Count 4.2 X10^3/uL (2.0-7.7); Basophil# 0.04 X10^3/uL; Basophil% 0.5 % (0-1); Eosinophil# 0.44 X10^3/uL; Eosinophils% 5.6 % (0-5); Hematocrit 46.7 % (37-47); Hemoglobin 15.8 g/dL (12.0-15.0); Lymphocyte # 2.63 X10^3/ul (4.0); Lymphocyte % 33.7 % (19-41); Mean Corp Hgb Conc 33.8 g/dL (32-36); Mean Corpuscular Hgb 30.9 pg (27.0-32.0); Mean Corpuscular Volume 91.4 fL (81-99); Mean Platelet Vol. 8.9 fl (6.2-12.0); Monocyte# 0.45 X10^3/uL; Monocyte% 5.8 % (0-10); NRBC Flagged by Analyzer 0 % (0-5); Neutrophil # 4.23 X10^3/uL (2.7-7.7); Neutrophil % 54.1 % (47-70); Platelet Count 394 K/mm3 (150-450); RBC Distribution Width CV 12.7 % (11.6-14.6); RBC Distribution Width SD 43.3 fl (35.1-43.9); Red Blood Count 5.11 M/mm3 (4.2-5.4); White Blood Count 7.8 K/mm3 (4.4-11.0)
[2020-10-31 14:04] LABS: Anion Gap 6 (5-15); BUN 17 mg/dL (7-18); BUN/Creat Ratio 27.7 RATIO (10-20); Calcium,Total 9.3 mg/dL (8.5-10.1); Chloride 106 mmol/L (98-107); Creatinine, Serum 0.61 mg/dL (0.55-1.02); EST Glomerular Filtration Rate 106 mL/min (>60); Est Glom Filt Rate - Afr Amer 129 mL/min (>60); Glucose 109 mg/dL (74-106); Sodium Level 136 mmol/L (136-145)
[2020-11-02 09:09] VITALS: BMI 26.9
--- NOTE | 2020-11-03 12:30 | CL.D_ITS ---
Patient Name: REAGAN MARTÍNEZ Study Date: 11/03/2020 Performing: Herve Wall MD Ht: 66.92 inches 170 cm : 1960 Wt: 171.96 lbs 78 kg Age: 60 Gender: female BSA: 1.89 PROCEDURE(S) PERFORMED CF46-FMZ/COR/LV CLINICAL PROFILE AND INDICATIONS Indications: Suspected CAD Heart Failure: None Stress/Imaging Date: 10/28/20ress Test with SPECT MPI: Positive Intermediate Risk CAD Presentations: Symptom unlikely to be ischemic. CONCLUSIONS Previously paced stent in the LAD and RCA are patent. RECOMMENDATIONS Medical therapy DESCRIPTION OF PROCEDURE The patient arrived to the procedure lab. The risks and benefits of the procedure as well as a full d escription of our services here and current unavailability of surgical backup were fully explained to the patient and/or their significant other prior to the catheterization. The Timeout was completed, verifying the correct patient and procedure. The patient's procedural site was prepped and draped in the usual fashion. Local anesthetic was given subcutaneously to right radial region with Lidocaine 2% . Using a modified Seldinger technique, arterial access was obtained via the right radial artery, a 6 Fr sheath was inserted. Right Coronary Artery selective angiography was then performed in multiple v iews using a 5 Fr. 4.0 [place] catheter. Left Coronary Artery selective angiography was performed in mu ltiple views using a 5 Fr. 4.0 [place] catheter. Left Ventriculography was performed in [place] projection using a 5 Fr. [place] catheter. LV to AO pullback pressures were then recorded.The arterial sheath was pulled and a TR Band was applied for hemostasis for 10ml air CORONARY ANGIOGRAPHY DOMINANCE: Right Dominant LEFT HEART ASSESSMENT Left Ventricular Ejection Fraction: by LV Gram 60 % Normal LV wall motion Normal Left Ventricular systolic function LEFT MAIN: Angiographically normal LEFT ANTERIOR DESCENDING ARTERY: PROX LAD: Instent restenosis 30 % CIRCUMFLEX ARTERY: Mild luminal irregularities RIGHT CORONARY ARTERY: PROX RCA: Previously placed stent is patent MID RCA: Previously placed stent is patent DISTAL RCA: Previously placed stent is patent COMPLICATIONS No Complications PROCEDURE MEDICATIONS Versed 1 mg IV Fentanyl 50 mcg IV Versed 1 mg IV Oxygen: 2 L/min via nasal cannula Heparin diluted in 23cc Heparinized saline. Patient given 10cc IA of this solution. 11/03/2020 12:08:2 0 Verapamil 2.5mg, Ntg 100mcgs, 2000 units of Heparin diluted in 23cc Heparinized saline. Patient give n 10cc IA of this solution. 11/03/2020 12:08:20 IV Bolus: .9 NaCl 450 ml total 11/03/2020 12:12:12 SUMMARY OF HEMODYNAMIC DATA Time AIR REST ECG 10:41:58 AO 76/47 (61) SA 12:12:00 LV 84/6, 9 12:19:30 LV 86/5, 9 12:19:36 LV 86/7, 16 12:20:31 LVp 73/4, 10 12:20:36 AOp 78/45 (59) 12:20:41 AO 81/47 (62) 12:21:05 12:27:05 Signed By Herve Wall MD On 11/03/2020 12:29:05 Herve Wall MD
== END 2020-11-03 14:00 | disposition home or self-care (01) ==
LOC: CLSP 10:18
PROVIDERS: PCP Internal Medicine; Referring Provider Internal Medicine Cardiovascular Disease; Visit Provider Internal Medicine Cardiovascular Disease
DX: I25.10 Atherosclerotic heart disease of native coronary artery without angina pectoris (principal); I10 Essential (primary) hypertension; E78.5 Hyperlipidemia, unspecified; L40.9 Psoriasis, unspecified; F17.200 Nicotine dependence, unspecified, uncomplicated; Z79.02 Long term (current) use of antithrombotics/antiplatelets; Z79.82 Long term (current) use of aspirin; Z79.899 Other long term (current) drug therapy; I25.2 Old myocardial infarction; Z95.5 Presence of coronary angioplasty implant and graft
CPT/HCPCS: 36415; 71046; 80048; 85025; 93458; 99152; 99153; J7040; Q9967; C1769; C1894

== ENCOUNTER 2021-02-11 00:10 | Emergency (ER) | payer OTHER, SELFPAY ==
[2020-11-02 09:09] VITALS: BMI 26.9
[2021-02-11 00:13] VITALS: BP 146/76; PULSE 66; RESP 20; TEMP 37.1; O2SAT 99; BMI 26.4
[2021-02-11 00:17] VITALS: BP 146/76; PULSE 66; RESP 20; TEMP 37.1; O2SAT 99
--- NOTE | 2021-02-11 00:33 | ED.VIS.LOWEX ---
HPI History of Present Illness Chief Complaint: Wound Informant: patient Occured/Mechanism Comment: Cut right lower leg Onset/Context/Timing Onset: Today Context: Sudden Onset Timing: Continuous Location: Right lower leg Worsened by: Nothing Relieved by: Nothing Associated Symptoms Associated Symptoms: Negative for Parasthesia, Weakness and Loss of Funtion Narrative Narrative: Patient presents with a laceration to her right lower leg that occurred today. Patient states she dropped scissors onto her right lower leg. Patient states the bleeding has been persistent. Patient states she is on Plavix and aspirin for coronary artery disease. Patient denies any paresthesias or weakness. Patient denies any pain to the area. Patient is unsure of her last tetanus. Patient denies any other injuries. 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) Psoriasis Home Medications aspirin 81 mg tablet,delayed release 81 mg PO DAILY #90 tab 03/13/18 [Rx Last Taken 11/03/20] nitroglycerin 0.4 mg sublingual tablet 0.4 mg SUBLINGUAL Q5M PRN #25 tab 09/22/18 [Rx Last Taken Unknown] Triamcinolone 0.1% Cream [Kenalog] 1 applic TOPICAL BID 08/07/20 [History Last Taken Unknown] clopidogrel 75 mg tablet 75 mg PO DAILY #90 tab 10/27/20 [Rx Last Taken 11/03/20] ezetimibe 10 mg tablet 10 mg PO QDAY #90 tablet 10/27/20 [Rx Last Taken 11/03/20] lisinopril 10 mg tablet 10 mg PO QDAY #90 tab 10/27/20 [Rx Last Taken 11/03/20] metoprolol succinate 25 mg tablet,extended release 24 hr 25 mg PO DAILY #90 tablet 10/27/20 [Rx Last Taken 11/03/20] Allergy/AdvReac Type Severity Reaction Status Date / Time beeswax Allergy Swelling Verified 10/27/20 10:15 Family History Mother CAD (coronary artery disease) Brother CAD (coronary artery disease) Surgical History History of coronary artery stent placement (11/30/15) History of left heart catheterization (11/03/20) History of throat surgery Social History Smoking Status: Heavy Smoker (>10/day) ROS ROS ED Constitutional Constitutional ED: Denies chills or fever(s) Eyes Eyes: Denies blurry vision or change in vision ENT ENT ED: Denies rhinorrhea or sore throat Cardiovascular Cardiovascular: Denies chest pain or palpitations Respiratory/Chest Respiratory/Chest: Denies cough or dyspnea Gastrointestinal Gastrointestinal: Denies nausea or vomiting Genitourinary Genitourinary ED: Denies dysuria or hematuria Musculoskeletal Musculoskeletal: Denies back pain or neck pain Integumentary Denies abscess or rash Neurologic Neurologic: Denies headache(s) or weakness Allergic/Immunologic Allergic/Immunologic ED: Denies mouth swelling or urticaria EXAM Physical Exam Const Vital Signs: 02/11/21 00:13 02/11/21 00:17 Temperature 98.8 F 98.8 F Temperature Source Oral Oral Pulse Rate 66 66 Respiratory Rate 20 H 20 H Blood Pressure 146/76 H 146/76 H Blood Pressure Mean 99 99 Pulse Ox 99 99 Oxygen Delivery Method Room Air Room Air Positive well nourished and well developed General Appearance ED: well developed HEENT Reports moist mucous membranes Extremity Extremity Narrative: There is a 2 cm partial-thickness linear laceration over the anterior aspect of the right lower leg. There is mild bleeding noted. There is minimal gapping of the wound margins. There are no foreign bodies. There is no bony crepitance or step-off noted. There is full range of motion of the right ankle and right knee. Sensation was intact to light touch bilaterally in the lower extremities. Pedal pulses are equal bilaterally. Neuro oriented x3, CN's II-XII intact bilaterally, moves all extremities and no sensory deficits noted Sensorium / Orientation: alert Motor Exam: strength 5/5 throughout Psych mental status grossly normal Skin Rashes: no rashes Trauma: laceration linear, No foreign body present, motor nerve function intact and sensation intact MDM MDM MDM Narrative Medical decision making narrative: The wound was cleaned with chlorhexidine. The wound was closed with Dermabond skin adhesive. The wound was dressed with a sterile dressing. Patient was given a tetanus booster. Patient was instructed to keep the wound clean and dry. Patient was instructed to avoid bacitracin, Neosporin, triple antibiotic, or other Vaseline-based ointments. Patient was instructed to follow-up with her primary care physician or [facility] in 5 to 7 days. Patient understood and was agreeable with the plan. All questions were answered. Discharge Plan Triage Chief Complaint: Wound ED Provider: Candido Escobar Dx/Rx/DC Orders Clinical Impression: Laceration of right lower leg Instructions: ED Laceration: Skin Adhesive Prescriptions: No Action clopidogrel 75 mg tablet 75 mg PO DAILY Qty: 90 RF: 3 ezetimibe [Zetia] 10 mg tablet 10 mg PO QDAY Qty: 90 RF: 3 lisinopril 10 mg tablet 10 mg PO QDAY Qty: 90 RF: 3 metoprolol succinate [Toprol XL] 25 mg tablet extended release 24 hr 25 mg PO DAILY Qty: 90 RF: 3 Triamcinolone 0.1% Cream [Kenalog] 1 APPLIC Tube 1 applic TOPICAL BID RF: 0 aspirin 81 mg tablet,delayed release (DR/EC) 81 mg PO DAILY Qty: 90 RF: 3 nitroglycerin 0.4 mg tablet, sublingual 0.4 mg SUBLINGUAL Q5M PRN (Reason: Chest Pain) Qty: 25 RF: 3 Primary Care Provider: Sarah Meredith Referrals: [facility] [GROUP OF PHYSICIANS] - 5-7 Days Sarah Meredith MD [Primary Care Provider] - 5-7 Days Disposition Disposition: Home, Self Care
[2021-02-11] MEDS: Diphth,Pertuss(Acell),Tet Vac 0.5 ML Vial IM (00:50)
== END 2021-02-11 00:54 | disposition home or self-care (01) ==
LOC: ED 00:46
PROVIDERS: Emergency Provider Emergency Medicine; PCP Internal Medicine
DX: S81.811A Laceration without foreign body, right lower leg, initial encounter (principal); Z23 Encounter for immunization; W45.8XXA Other foreign body or object entering through skin, initial encounter; W27.2XXA Contact with scissors, initial encounter; Y93.9 Activity, unspecified; Y92.9 Unspecified place or not applicable; Y99.0 Civilian activity done for income or pay; I25.10 Atherosclerotic heart disease of native coronary artery without angina pectoris; I10 Essential (primary) hypertension; E78.5 Hyperlipidemia, unspecified; L40.9 Psoriasis, unspecified; F17.200 Nicotine dependence, unspecified, uncomplicated; Z79.82 Long term (current) use of aspirin; Z79.02 Long term (current) use of antithrombotics/antiplatelets; I25.2 Old myocardial infarction; Z95.5 Presence of coronary angioplasty implant and graft
CPT/HCPCS: 12001; 90471; 90715; 99282

== ENCOUNTER → 2021-11-29 | Outpatient (CLI) | payer BC, SELFPAY ==
--- NOTE | 2021-11-29 09:49 | ECHOD_ITS ---
Reason For Study: Dyspnea/SOB Procedure This was a 2D Doppler, Color Flow transthoracic echocardiogram. Exam performed in department. Left Ventricle Normal LV size. Left ventricular systolic function is normal. The estimated ejection fraction is 65 %. Stage 2 diastolic dysfunction. No regional wall motion abnormalities noted. Right Ventricle Normal right ventricle. Normal systolic function. Atria Normal left atrium. Normal right atrium. Mitral Valve Normal mitral valve. Trivial eccentric mitral valve insufficiency. Tricuspid Valve Normal tricuspid valve. Mild (1+) tricuspid valve insufficiency. Pulmonary artery systolic pressure is 30 mmHg. Aortic Valve Normal aortic valve. Trisinus/trileaflet aortic valve. Pulmonic Valve Normal pulmonic valve. Great Vessels Normal aortic root. The pulmonary artery is normal size. Normal inferior vena cava. Pericardium/Pleural No pericardial effusion. MMode/2D Measurements & Calculations LVIDd: 4.9 cm IVSd: 1.0 cm Ao root diam: 2.8 cm LVIDs: 3.0 cm LVPWd: 0.77 cm RVDd: 3.5 cm FS: 38.1 % LAV(MOD-bp): 60.7 ml LVAd ap4: 30.1 cm2 SV(MOD-sp4): 62.8 ml LAV(MOD-bp) Indexed: 33.9 ml/m2 LVLd ap4: 7.6 cm LAV(MOD-sp2): 53.3 ml EDV(MOD-sp4): 98.5 ml LAV(MOD-sp4): 60.3 ml EDV(sp4-el): 101.3 ml LVAs ap4: 15.6 cm2 LVLs ap4: 5.9 cm ESV(MOD-sp4): 35.7 ml ESV(sp4-el): 35.2 ml EF(MOD-sp4): 63.8 % EF(sp4-el): 65.3 % SV(sp4-el): 66.1 ml LA A4 area: 21.7 cm2 LA dimension(2D): 3.9 cm RA A4 area: 13.3 cm2 Doppler Measurements & Calculations MV E max trey: 86.4 cm/sec Lat Peak E' Trey: 10.9 cm/sec Med Peak E' Trey: 10.9 cm/sec MV A max trey: 55.1 cm/sec E/E' lat: 7.9 E/E' med: 7.9 MV E/A: 1.6 Ao V2 max: 193.5 cm/sec LV V1 max: 167.7 cm/sec PA V2 max: 96.6 cm/sec Ao max P.0 mmHg LV V1 max P.2 mmHg Ao V2 mean: 129.7 cm/sec Ao mean P.5 mmHg Ao V2 VTI: 42.8 cm TR max trey: 250.8 cm/sec TR max P.2 mmHg ECHO/Echo Complete Interpretation Summary Normal LV size. Left ventricular systolic function is normal. The estimated ejection fraction is 65 %. Stage 2 diastolic dysfunction. Structurally normal valves. Ordering Physician: Colleen Gardner Referring Physician: Sarah Meredith Performed By: Diann Finney, CLIFF, RVT
== END | disposition home or self-care (01) ==
PROVIDERS: PCP Internal Medicine; Referring Provider Physician Assistant Medical; Visit Provider Physician Assistant Medical
DX: I25.10 Atherosclerotic heart disease of native coronary artery without angina pectoris (principal); I10 Essential (primary) hypertension; E78.5 Hyperlipidemia, unspecified; R07.89 Other chest pain; R06.02 Shortness of breath
CPT/HCPCS: 93306

== ENCOUNTER → 2022-10-24 | Outpatient (CLI) | payer BC, SELFPAY ==
--- NOTE | 2022-10-24 14:52 | ART_ITS ---
Reason For Study: Claudication Procedure A bilateral lower extremity continuous wave Doppler with analog waveform analysis,segmental pressures,and ankle brachial indexes without exercise. Left Segmental Pressures Left brachial= 123mmHg. Left posterior tibial artery = 139mmHg. Left dorsalis pedis artery = 155mmHg. Left digit = 129 mmHg. The left posterior tibial artery waveforms are biphasic. The left dorsalis pedis waveforms are biphasic. Right Segmental Pressures Right brachial= 127mmHg. Right posterior tibial artery = 134mmHg. Right dorsalis pedis artery = 129mmHg. Right digit = 105 mmHg. The right posterior tibial artery waveforms are biphasic. The right dorsalis pedis waveforms are biphasic. Indices The right ankle brachial index by the posterior tibial artery is 1.06. The right ankle brachial index by the dorsalis pedis is 1.02. The right digital-brachial index is 0.83. The left ankle brachial index by the posterior tibial artery is 1.09. The left ankle brachial index by the dorsalis pedis is 1.22. The left digital-brachial index is 1.02. VL/Lower Ext Art Exam w/o Exercis Interpretation Summary Right MARY 1.06, normal. TBI and Doppler/PVR waveforms of the right leg normal a t rest. Left MARY 1.22, normal. TBI and Doppler/PVR waveforms of the left leg normal at rest. Ordering Physician: Colleen Gardner Referring Physician: Sarah Meredith Performed By: Olaf Hurley, RVT
== END | disposition home or self-care (01) ==
LOC: CVS 14:50
PROVIDERS: PCP Internal Medicine; Referring Provider Physician Assistant Medical; Visit Provider Physician Assistant Medical
DX: I73.9 Peripheral vascular disease, unspecified (principal)
CPT/HCPCS: 93923

== ENCOUNTER 2023-02-13 08:54 | Emergency (ER) | payer BC, SELFPAY ==
[2023-02-13 08:55] VITALS: BP 124/76; PULSE 78; RESP 16; TEMP 36.6; O2SAT 97; BMI 23.6
--- NOTE | 2023-02-13 09:03 | EX.ED.UPPERE ---
HPI History of Present Illness HPI Narrative: Patient presents with nail plate avulsion that occurred last night. Patient states she was doing laundry and hit her thumb on the laundry basket. Patient states the base of the nail plate came out from under the eponychium. Patient states her pain is worse with movement. Patient describes her pain as sharp. Patient states her pain is better with rest and bandaging. Patient denies any paresthesias or weakness. Patient denies any other injuries. Patient states her last tetanus was within 5 years. 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) Psoriasis Home Medications aspirin 81 mg tablet,delayed release 81 mg PO DAILY #90 tabs 03/13/18 [Rx Last Taken 11/03/20] nitroglycerin 0.4 mg sublingual tablet 0.4 mg sublingual Q5M PRN Chest Pain #25 tabs 09/22/18 [Rx Last Taken Unknown] clopidogrel 75 mg tablet 75 mg PO DAILY #90 tabs 10/27/20 [Rx Last Taken 11/03/20] ezetimibe 10 mg tablet (Zetia) 10 mg PO QDAY #90 tabs 10/27/20 [Rx Last Taken 11/03/20] lisinopril 10 mg tablet 10 mg PO QDAY #90 tabs 10/27/20 [Rx Last Taken 11/03/20] metoprolol succinate 25 mg tablet,extended release 24 hr (Toprol XL) 25 mg PO DAILY #90 tabs 10/27/20 [Rx Last Taken 11/03/20] Allergy/AdvReac Type Severity Reaction Status Date / Time beeswax Allergy Swelling Verified 02/13/23 08:55 Family History Mother CAD (coronary artery disease) Brother CAD (coronary artery disease) Surgical History History of coronary artery stent placement (11/30/15) History of left heart catheterization (11/03/20) History of throat surgery Social History Smoking Status: Heavy Smoker (>10/day) ROS ROS ED Constitutional Constitutional ED: Denies chills or fever(s) Eyes Eyes: Denies blurry vision or change in vision ENT ENT ED: Denies rhinorrhea or sore throat Cardiovascular Cardiovascular: Denies chest pain or palpitations Respiratory/Chest Respiratory/Chest: Denies cough or dyspnea Gastrointestinal Gastrointestinal: Denies nausea or vomiting Genitourinary Genitourinary ED: Denies dysuria or hematuria Musculoskeletal Musculoskeletal: Denies back pain or neck pain Integumentary Denies abscess or rash Neurologic Neurologic: Denies headache(s) or weakness Allergic/Immunologic Allergic/Immunologic ED: Denies mouth swelling or urticaria EXAM Physical Exam Const Vital Signs: 02/13/23 08:55 Temperature 97.8 F Temperature Source Temporal Pulse Rate 78 Respiratory Rate 16 Blood Pressure 124/76 H Blood Pressure Mean 92 Pulse Ox 97 Oxygen Delivery Method Room Air Positive well nourished and well developed General Appearance ED: well developed and NAD HEENT Reports moist mucous membranes Neck full ROM and supple Extremity Extremity Narrative: There is a nail plate avulsion at the base of the right thumb on the radial aspect. There is no active bleeding noted. Sensation was intact to light touch in all digits. Capillary refill was less than 2 seconds in all digits. Strength is 5/5 in the radial, median, and ulnar areas. Radial pulses are equal bilaterally. Neuro oriented x3, CN's II-XII intact bilaterally, moves all extremities, no focal motor deficits and no sensory deficits noted Sensorium / Orientation: alert Motor Exam: strength 5/5 throughout Psych mental status grossly normal MDM MDM MDM Narrative Medical decision making narrative: Smoking cessation was discussed. The right thumb was anesthetized with 1% lidocaine via digital block. The nail plate avulsion was reduced. Patient tolerated the procedure well. Dressing was applied. Patient was instructed to follow-up with her primary care physician in 5 to 7 days. Patient was instructed return if worse in any way. Patient understood and was agreeable with the plan. All questions were answered. Discharge Plan Triage Chief Complaint: Laceration ED Provider: Candido Escobar Dx/Rx/DC Orders Clinical Impression: Traumatic avulsion of nail plate of finger, Nicotine dependence, Essential (primary) hypertension Instructions: ED Detached Fingernail or Toenail Prescriptions: No Action clopidogrel 75 mg tablet 75 mg PO DAILY Qty: 90 3RF ezetimibe [Zetia] 10 mg tablet 10 mg PO QDAY Qty: 90 3RF Patient Comments: cholesterol lisinopril 10 mg tablet 10 mg PO QDAY Qty: 90 3RF metoprolol succinate [Toprol XL] 25 mg tablet extended release 24 hr 25 mg PO DAILY Qty: 90 3RF aspirin 81 mg tablet,delayed release (DR/EC) 81 mg PO DAILY Qty: 90 3RF nitroglycerin 0.4 mg tablet, sublingual 0.4 mg sublingual Q5M PRN (Reason: Chest Pain) Qty: 25 3RF Primary Care Provider: Sarah Meredith Referrals: Sarah Meredith MD [Primary Care Provider] - 5-7 Days Disposition Disposition: Home, Self Care
[2023-02-13 09:56] VITALS: RESP 16
[2023-02-13] MEDS: Lidocaine 1% (20 ml mdv) 20 ML Vial INFILT (09:57)
== END 2023-02-13 09:56 | disposition home or self-care (01) ==
LOC: ED 09:13
PROVIDERS: Emergency Provider Emergency Medicine; PCP Internal Medicine; Visit Provider Emergency Medicine
DX: S61.101A Unspecified open wound of right thumb with damage to nail, initial encounter (principal); W22.09XA Striking against other stationary object, initial encounter; I25.10 Atherosclerotic heart disease of native coronary artery without angina pectoris; E78.5 Hyperlipidemia, unspecified; I10 Essential (primary) hypertension; F17.200 Nicotine dependence, unspecified, uncomplicated; Z79.82 Long term (current) use of aspirin; Z79.02 Long term (current) use of antithrombotics/antiplatelets; Z79.899 Other long term (current) drug therapy; Z95.2 Presence of prosthetic heart valve
CPT/HCPCS: 11730; 99283

== ENCOUNTER 2023-05-21 11:08 | Observation (INO) | payer BC, SELFPAY ==
[2023-05-21 11:10] VITALS: BP 151/101; PULSE 66; RESP 16; TEMP 36.6; O2SAT 100; BMI 23.8
--- NOTE | 2023-05-21 11:19 | EX.ED.DYSGE1 ---
HPI <KODY Kidd - Last Filed: 05/21/23 12:49> History of Present Illness Chief Complaint: Chest Pain Narrative Narrative: 63-year-old female with PMH of HTN, HLD, PVD, MT, CAD with 6 stents in 2016 presents with chest pain that occurred prior to arrival at work this morning. She was stacking pans and developed midsternal chest heaviness described as something sitting on her chest associated with shortness of breath and nausea. It lasted 3 minutes and is completely resolved. She states she was not exerting herself at work. She has had no recent exertional chest pain or dyspnea. She is supposed to be on aspirin/Plavix but stopped the aspirin because she was bruising easily. She smokes 1 PPD x30 years. She is a patient of Dr. Wall. 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) Psoriasis Home Medications aspirin 81 mg tablet,delayed release 81 mg PO DAILY #90 tabs 03/13/18 [Rx Last Taken 11/03/20] nitroglycerin 0.4 mg sublingual tablet 0.4 mg sublingual Q5M PRN Chest Pain #25 tabs 09/22/18 [Rx Last Taken Unknown] clopidogrel 75 mg tablet 75 mg PO DAILY #90 tabs 10/27/20 [Rx Last Taken 11/03/20] ezetimibe 10 mg tablet (Zetia) 10 mg PO QDAY #90 tabs 10/27/20 [Rx Last Taken 11/03/20] lisinopril 10 mg tablet 10 mg PO QDAY #90 tabs 10/27/20 [Rx Last Taken 11/03/20] metoprolol succinate 25 mg tablet,extended release 24 hr (Toprol XL) 25 mg PO DAILY #90 tabs 10/27/20 [Rx Last Taken 11/03/20] Allergy/AdvReac Type Severity Reaction Status Date / Time beeswax Allergy Swelling Verified 05/21/23 11:14 Family History Mother CAD (coronary artery disease) Brother CAD (coronary artery disease) Surgical History History of coronary artery stent placement (11/30/15) History of left heart catheterization (11/03/20) History of throat surgery Social History Smoking Status: Heavy Smoker (>10/day) ROS <KODY Kidd - Last Filed: 05/21/23 12:49> ROS ED ROS Narrative Constitutional: Negative for fever, chills, malaise. CVS: Positive for chest pain. Negative for syncope. Respiratory: Positive for shortness of breath. Negative for cough, orthopnea. GI: Positive for nausea. Negative for abdominal pain, vomiting. EXAM <KODY Kidd - Last Filed: 05/21/23 12:49> Physical Exam Narrative Exam Narrative: CONST: Patient sitting in no acute distress. EYES: Normal inspection. NECK: Normal inspection. RESP: No respiratory distress, CTAB. CVS: Regular rate and rhythm, no murmur, no gallop. ABD: Soft and nontender, no guarding or rebound, nondistended. SKIN: Color normal, no rash, warm, dry, intact. EXTREMITIES: Normal appearance, no pedal edema. 2+ radial and PT pulses. NEURO: Oriented x4. PSYCH: Normal affect. Const Vital Signs: 05/21/23 11:10 05/21/23 11:20 05/21/23 12:47 Temperature 97.9 F Temperature Source Temporal Pulse Rate 66 56 L Respiratory Rate 16 16 Blood Pressure 151/101 H 125/70 H Blood Pressure Mean 117 88 Pulse Ox 100 99 Oxygen Delivery Method Room Air Room Air <Dr. Horacio Berkowitz DO - Last Filed: 05/21/23 15:49> Physical Exam Const Vital Signs: 05/21/23 11:10 05/21/23 11:20 05/21/23 12:47 Temperature 97.9 F Temperature Source Temporal Pulse Rate 66 56 L Respiratory Rate 16 16 Blood Pressure 151/101 H 125/70 H Blood Pressure Mean 117 88 Pulse Ox 100 99 Oxygen Delivery Method Room Air Room Air MDM <KODY Kidd - Last Filed: 05/21/23 12:49> [facility] MDM Narrative Medical decision making narrative: Patient had a 3-minute episode of chest pain, shortness of breath, and nausea while at work. It felt similar to prior MT with stents in 2016. She appears well and nontoxic. Vital signs stable. Her medical exam is benign. Lab work was drawn and she was given ASA 325 mg. EKG shows sinus rhythm with no ectopy or ischemic changes. CBC and BMP are WNL. First troponin is 6, delta pending. Since she has a heart score of 5 and symptoms felt similar to last MRI I feel she needs admitted for cardiac work-up. Case will be discussed with the hospitalist for admission. Differential: ACS, unstable angina External records reviewed: 11/29/2021 echo shows EF 65%, stage II diastolic dysfunction 11/03/2020 cardiac cath diagnostic report Proximal LAD had in-stent restenosis of 30% Conclusion: Previously-placed stents in LAD and RCA are patent I have personally performed a face to face assessment of the patient and have reviewed the JUAREZ Note. I performed a substantive portion of the visit including all aspects of the following. My cuevas findings include: History is [patient presents with chest discomfort that came on suddenly while at work at approximately 10:30 AM. Patient was stacking some trays and not really doing anything exertional. Describes a elephant sitting across her chest and she felt somewhat nauseated and short of breath with it. This felt similar to what she had when she had a heart attack requiring 6 stents in 2016. Patient states the pain really did not radiate and resolved after about 3 minutes. Patient takes Plavix currently. Denies recent travel or surgery. Currently not having any pain.] Exam is [HEENT-PERRLA, EOMI. Cranial nerves II through XII grossly intact. TMs clear. Mucous membranes moist. No adenopathy. Cardiovascular-regular rate and rhythm without murmur or ectopy Lungs-clear to auscultation, chest wall stable without crepitus or subcu emphysema Abdomen-normoactive bowel sounds, soft, nontender, no rebound or rigidity, no peritoneal signs. Extremities-intact ?4, normal range of motion, normal pulses, atraumatic] Medical Decison Making [patient presents with chest pain similar to what she had when she had a heart attack. Concern for acute coronary syndrome. IV line be established. EKG obtained showed a sinus rhythm with no acute ST segment changes. Will obtain lab work-up including troponin and will give patient aspirin.] Other additions or changes: [None] Lab Data Attestation: I reviewed the patient's lab results. Labs: Laboratory Results - last 24 hr 05/21/23 11:13 WBC 9.8 RBC 4.68 Hgb 14.5 Hct 42.5 MCV 90.8 MCH 31.0 MCHC 34.1 RDW Std Deviation 42.0 RDW Coeff of Jori 12.7 Plt Count 315 MPV 8.5 Immature Gran % (Auto) 0.300 Neut % (Auto) 50.7 Lymph % (Auto) 39.7 Twiggs % (Auto) 5.7 Eos % (Auto) 2.9 Baso % (Auto) 0.7 Absolute Neuts (auto) 5.0 Absolute Lymphs (auto) 3.89 Nucleated RBC % 0 Sodium 137 Potassium 3.9 Chloride 104 Carbon Dioxide 28.0 Anion Gap 5 BUN 20 H Creatinine 0.70 Estim Creat Clear Calc 82.07 Est GFR (MDRD) Af Amer 109 Est GFR (MDRD) Non-Af 90 BUN/Creatinine Ratio 28.5 H Glucose 107 H Calcium 9.4 Troponin I High Sens 6 Radiography Diagnostic Testing: Clinical Impression(s) from Imaging Studies Chest X-Ray 05/21/23 11:30 IMPRESSION: Stable chest with no interval development of an acute or emergent finding. Electronically Signed: Eladio Hernández MD at 11:49 EDT Reading Location ID and State: [address] [place] [address] , Service support , ED attending interpretation of 1-view chest x-ray shows normal heart size, no acute infiltrate, edema, or effusion. EKG Initial EKG: Attestation: I personally reviewed and interpreted this EKG as follows: Interpretation: Sinus Rhythm and No Acute Injury Pattern Comments: Normal sinus rhythm at 67 bpm No ectopy or ischemic changes <Dr. Horacio Berkowitz, DO - Last Filed: 05/21/23 15:49> [facility] Narrative Medical decision making narrative: Patient had a 3-minute episode of chest pain, shortness of breath, and nausea while at work. It felt similar to prior MT with stents in 2016. She appears well and nontoxic. Vital signs stable. Her medical exam is benign. Lab work was drawn and she was given ASA 325 mg. EKG shows sinus rhythm with no ectopy or ischemic changes. CBC and BMP are WNL. First troponin is 6, delta pending. Since she has a heart score of 5 and symptoms felt similar to last MRI I feel she needs admitted for cardiac work-up. Case will be discussed with the hospitalist for admission. Differential: ACS, unstable angina External records reviewed: 11/29/2021 echo shows EF 65%, stage II diastolic dysfunction 11/03/2020 cardiac cath diagnostic report Proximal LAD had in-stent restenosis of 30% Conclusion: Previously-placed stents in LAD and RCA are patent I have personally performed a face to face assessment of the patient and have reviewed the JUAREZ Note. I performed a substantive portion of the visit including all aspects of the following. My cuevas findings include: History is [patient presents with chest discomfort that came on suddenly while at work at approximately 10:30 AM. Patient was stacking some trays and not really doing anything exertional. Describes a elephant sitting across her chest and she felt somewhat nauseated and short of breath with it. This felt similar to what she had when she had a heart attack requiring 6 stents in 2016. Patient states the pain really did not radiate and resolved after about 3 minutes. Patient takes Plavix currently. Denies recent travel or surgery. Currently not having any pain.] Exam is [HEENT-PERRLA, EOMI. Cranial nerves II through XII grossly intact. TMs clear. Mucous membranes moist. No adenopathy. Cardiovascular-regular rate and rhythm without murmur or ectopy Lungs-clear to auscultation, chest wall stable without crepitus or subcu emphysema Abdomen-normoactive bowel sounds, soft, nontender, no rebound or rigidity, no peritoneal signs. Extremities-intact ?4, normal range of motion, normal pulses, atraumatic] Medical Decison Making [patient presents with chest pain similar to what she had when she had a heart attack. Concern for acute coronary syndrome. IV line be established. EKG obtained showed a sinus rhythm with no acute ST segment changes. Will obtain lab work-up including troponin and will give patient aspirin.] Patient has a heart score of 5. Lab work-up unremarkable. Case discussed with hospitalist to evaluate patient for admission. Other additions or changes: [None] Lab Data Labs: Laboratory Results - last 24 hr 05/21/23 11:13 WBC 9.8 RBC 4.68 Hgb 14.5 Hct 42.5 MCV 90.8 MCH 31.0 MCHC 34.1 RDW Std Deviation 42.0 RDW Coeff of Jori 12.7 Plt Count 315 MPV 8.5 Immature Gran % (Auto) 0.300 Neut % (Auto) 50.7 Lymph % (Auto) 39.7 Twiggs % (Auto) 5.7 Eos % (Auto) 2.9 Baso % (Auto) 0.7 Absolute Neuts (auto) 5.0 Absolute Lymphs (auto) 3.89 Nucleated RBC % 0 Sodium 137 Potassium 3.9 Chloride 104 Carbon Dioxide 28.0 Anion Gap 5 BUN 20 H Creatinine 0.70 Estim Creat Clear Calc 82.07 Est GFR (MDRD) Af Amer 109 Est GFR (MDRD) Non-Af 90 BUN/Creatinine Ratio 28.5 H Glucose 107 H Calcium 9.4 Troponin I High Sens 6 Radiography Diagnostic Testing: Clinical Impression(s) from Imaging Studies Chest X-Ray 05/21/23 11:30 IMPRESSION: Stable chest with no interval development of an acute or emergent finding. Electronically Signed: Eladio Hernández MD at 11:49 EDT , Discharge Plan Dx/Rx/DC Orders Clinical Impression: Chest pain, Essential (primary) hypertension, History of CAD (coronary artery disease) Disposition Disposition: Acute Care Hospital [facility] Discharge Date/Time: 05/21/23 15:40
[2023-05-21] MEDS: Aspirin 81 MG TAB.CHEW 324 MG PO (11:22)
--- NOTE | 2023-05-21 11:30 | RAD_ITS ---
STUDY: X-RAY CHEST REASON FOR EXAM: Female, 63 years old. Chest pain. TECHNIQUE: Single frontal view of the chest. COMPARISON: October 31, 2020 FINDINGS: Stable mild hyperinflation. There is no demonstrated pleural abnormality. Borderline cardiomegaly unchanged. Normal mediastinum and jann. Normal visualized pulmonary arteries. Normal visualized aortic arch and descending thoracic aorta. Normal visualized thoracic spine. Normal visualized ribs, clavicles, and shoulders. No abnormality of the visualized soft tissue structures of the upper abdomen. RAD/Chest 1 View (Portable) IMPRESSION: Stable chest with no interval development of an acute or emergent finding. Electronically Signed: Eladio Hernández MD at 11:49 EDT ,
[2023-05-21 11:35] LABS: Absolute Lymphocyte Count 3.89 X10^3/uL (0.83-4.51); Basophil# 0.07 X10^3/uL; Basophil% 0.7 % (0-1); Eosinophil# 0.28 X10^3/uL; Eosinophils% 2.9 % (0-5); Hematocrit 42.5 % (37-47); Hemoglobin 14.5 g/dL (12.0-15.0); Lymphocyte # 3.89 X10^3/ul (0.83-4.51); Lymphocyte % 39.7 % (19-41); Mean Corp Hgb Conc 34.1 g/dL (32-36); Mean Corpuscular Volume 90.8 fL (81-99); Mean Platelet Vol. 8.5 fl (6.2-12.0); Monocyte# 0.56 X10^3/uL; Monocyte% 5.7 % (0-10); NRBC Flagged by Analyzer 0 % (0-5); Neutrophil # 4.97 X10^3/uL (2.7-7.7); Neutrophil % 50.7 % (47-70); Platelet Count 315 K/mm3 (150-450); RBC Distribution Width CV 12.7 % (11.6-14.6); Red Blood Count 4.68 M/mm3 (4.2-5.4); White Blood Count 9.8 K/mm3 (4.4-11.0)
[2023-05-21 11:52] LABS: Anion Gap 5 (5-15); BUN 20 mg/dL (7-18); BUN/Creat Ratio 28.5 RATIO (10-20); Calcium,Total 9.4 mg/dL (8.5-10.1); Chloride 104 mmol/L (98-107); EST Glomerular Filtration Rate 90 mL/min (>60); Est Glom Filt Rate - Afr Amer 109 mL/min (>60); Estimated Creatinine Clearance 82.07 ml/min; Glucose 107 mg/dL (74-106); Potassium 3.9 mmol/L (3.5-5.1); Sodium Level 137 mmol/L (136-145); Troponin-I HS (w/2H Reflex) 6 pg/mL (3.0-54.0)
[2023-05-21 12:47] VITALS: BP 125/70; PULSE 56; RESP 16; O2SAT 99
--- NOTE | 2023-05-21 13:24 | PCM.HP.STD ---
HPI - General General Date of Admission: 05/21/23 Date of Service: 05/21/23 Chief Complaint: Chest pain HPI Narrative REAGAN MARTÍNEZ, is a 63 F with a history of hypertension, coronary artery disease with 7 stents, and tobacco use presented to [facility] 05/21/2023 with several minutes of chest pressure. She reports she was at work and in her usual health until several hours ago when she was just standing at work and then she had a pressure squeezing feeling across her whole chest. She to me reported it lasted minutes, she is unsure if she was lightheaded or nauseated or sweaty given its brief nature and she reported she became very anxious that it was her heart. Work-up in ED unremarkable however has high heart score, hospitalist consulted for admission. Patient seen at bedside and reports that symptoms have completely resolved prior to arrival but given her stents in 2015 with pressure prior to that she was concerned enough to come to get evaluated. She endorsed the chest pressure across her whole chest and said it was like a contraction when he gave but could not describe any other associated symptoms. Patient otherwise has been in her usual health and had no symptoms before or after. 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) Psoriasis Home Medications aspirin 81 mg tablet,delayed release 81 mg PO DAILY #90 tabs 03/13/18 [Rx Last Taken 11/03/20] nitroglycerin 0.4 mg sublingual tablet 0.4 mg sublingual Q5M PRN Chest Pain #25 tabs 09/22/18 [Rx Last Taken Unknown] clopidogrel 75 mg tablet 75 mg PO DAILY #90 tabs 10/27/20 [Rx Last Taken 11/03/20] ezetimibe 10 mg tablet (Zetia) 10 mg PO QDAY #90 tabs 10/27/20 [Rx Last Taken 11/03/20] lisinopril 10 mg tablet 10 mg PO QDAY #90 tabs 10/27/20 [Rx Last Taken 11/03/20] metoprolol succinate 25 mg tablet,extended release 24 hr (Toprol XL) 25 mg PO DAILY #90 tabs 10/27/20 [Rx Last Taken 11/03/20] Allergy/AdvReac Type Severity Reaction Status Date / Time beeswax Allergy Swelling Verified 05/21/23 11:14 Family History Mother CAD (coronary artery disease) Brother CAD (coronary artery disease) Surgical History History of coronary artery stent placement (11/30/15) History of left heart catheterization (11/03/20) History of throat surgery Social History (Updated 05/21/23 @ 15:56 by Colleen Felix) household members: none pets and animals: Yes Smoking Status: Heavy Smoker (>10/day) ROS ROS Narrative General: Denies fever/chills HENT: Denies headache, denies stuffy nose, denies sore throat EYES: Denies changes in vision Resp: Denies cough, denies shortness of breath Cardiac: Had chest pressure that is since resolved GI: Denies abdominal pain, denies changes in bowel, denies nausea/vomiting : Denies changes in urination Extremity: Denies swelling MSK: Denies weakness Neuro: Denies any numbness/tingling Heme: Denies any bleeding or bruising Skin: Denies rashes Psychiatric: No complaints voiced Vital Signs Vital Signs Vital Signs: 05/21/23 11:10 05/21/23 11:20 05/21/23 12:47 Temperature 97.9 F Temperature Source Temporal Pulse Rate 66 56 L Respiratory Rate 16 16 Blood Pressure 151/101 H 125/70 H Blood Pressure Mean 117 88 Pulse Ox 100 99 Oxygen Delivery Method Room Air Room Air Weight Weight: 68.946 kg Body Mass Index (BMI) 23.8 Physical Exam Narrative General: Alert, oriented, no apparent distress HEENT: Atraumatic, normocephalic Eyes: Anicteric, normal conjunctiva, extraocular movements grossly intact Neck: Supple Respiratory: Clear to auscultation bilaterally, normal respiratory effort Cardiovascular: Regular rate and rhythm GI: Soft, nontender, nondistended Extremities: No edema Musculoskeletal: Moving all extremities Neuro: No overt focal neurological deficits Skin: No rashes appreciated Psych: Cooperative Results Lab / Micro Data 05/21/23 11:13 05/21/23 11:13 Labs: Laboratory Results - last 24 hr 05/21/23 11:13: WBC 9.8, RBC 4.68, Hgb 14.5, Hct 42.5, MCV 90.8, MCH 31.0, MCHC 34.1, RDW Std Deviation 42.0, RDW Coeff of Jori 12.7, Plt Count 315, MPV 8.5, Immature Gran % (Auto) 0.300, Neut % (Auto) 50.7, Lymph % (Auto) 39.7, [place] % (Auto) 5.7, Eos % (Auto) 2.9, Baso % (Auto) 0.7, Absolute Neuts (auto) 5.0, Absolute Lymphs (auto) 3.89, Nucleated RBC % 0, Sodium 137, Potassium 3.9, Chloride 104, Carbon Dioxide 28.0, Anion Gap 5, BUN 20 H, Creatinine 0.70, Estim Creat Clear Calc 82.07, Est GFR (MDRD) Af Amer 109, Est GFR (MDRD) Non-Af 90, BUN/Creatinine Ratio 28.5 H, Glucose 107 H, Calcium 9.4, Troponin I High Sens 6 Radiology Impression Chest X-Ray 05/21/23 11:30 IMPRESSION: Stable chest with no interval development of an acute or emergent finding. Electronically Signed: Eladio Hernández MD at 11:49 EDT , Assessment & Plan Assessment/Plan (1) Chest pain: (2) Nicotine dependence: (3) History of coronary artery stent placement: PLAN: Plan #Chest pain -Atypical but high heart score and cardiac history -EKG with no acute ischemic changes, troponin negative and no delta -Was loaded with aspirin, continue aspirin -We will continue patient's home Plavix, obtain echo, obtain stress test -Lovenox for DVT prophylaxis #Coronary artery disease -Status post 7 stents and reports most recent was in 2016 -Aspirin, Plavix, beta-biju -As above #Tobacco use -Advise cessation -Patient agreeable to nicotine replacement #DVT ppx: Lovenox subcu Jami Jewell MD Time spent in the patient's overall evaluation,decision-making process, review of diagnostic data, adjustment of management, discussion with other providers, nursing nursing and ancillary staff involved in patient's care documentation, 60 minutes Charges/Coding Visit Charges Inpatient E&M: 41457 Init Hosp L2
[2023-05-21 13:28] LABS: Reflex Troponin-HS? (from REC) Y
--- NOTE | 2023-05-21 13:28 | ECHOD_ITS ---
Reason For Study: CHEST PAIN Procedure This was a 2D Doppler, Color Flow transthoracic echocardiogram. Exam performed portable in patient room. Left Ventricle Normal size and thickness. The left ventricular ejection fraction is 65 %. Normal diastology for age. Right Ventricle Normal right ventricle. Atria The left and right atria are normal. Mitral Valve The mitral valve is structurally normal. No prolapse or stenosis seen. Tricuspid Valve Mild tricuspid valve insufficiency. Normal pulmonary artery pressure. Aortic Valve Trisinus/trileaflet aortic valve. Pulmonic Valve The pulmonic valve is not well visualized. Great Vessels Normal sized aortic root. Pericardium/Pleural No pericardial effusion. MMode/2D Measurements & Calculations LVIDd: 4.2 cm IVSd: 1.0 cm LVOT diam: 1.9 cm LVIDs: 2.6 cm LVPWd: 0.79 cm LVOT area: 2.8 cm2 RVDd: 3.5 cm FS: 39.0 % Ao root diam: 3.1 cm LAV(MOD-bp): 38.4 ml LVAd ap4: 23.8 cm2 LAV(MOD-bp) Indexed: 21.4 ml/m2 LVLd ap4: 7.1 cm LAV(MOD-sp2): 44.5 ml EDV(MOD-sp4): 65.4 ml LAV(MOD-sp4): 30.3 ml EDV(sp4-el): 67.2 ml LVAs ap4: 12.1 cm2 LVLs ap4: 5.9 cm ESV(MOD-sp4): 21.5 ml ESV(sp4-el): 21.1 ml EF(MOD-sp4): 67.2 % EF(sp4-el): 68.6 % LVAd ap2: 20.7 cm2 SV(MOD-sp4): 43.9 ml SV(MOD-sp2): 34.7 ml LVLd ap2: 7.2 cm EDV(MOD-sp2): 48.8 ml EDV(sp2-el): 50.3 ml LVAs ap2: 10.4 cm2 LVLs ap2: 6.4 cm ESV(MOD-sp2): 14.1 ml ESV(sp2-el): 14.4 ml EF(MOD-sp2): 71.1 % SV(sp4-el): 46.1 ml LA dimension(2D): 3.5 cm LA A4 area: 12.8 cm2 RA A4 area: 10.6 cm2 TAPSE: 2.3 cm Time Measurements MV dec time: 0.24 sec Doppler Measurements & Calculations MV E max trey: 64.8 cm/sec Lat Peak E' Trey: 12.5 cm/sec Med Peak E' Trey: 7.8 cm/sec MV A max trey: 60.8 cm/sec E/E' lat: 5.2 E/E' med: 8.3 MV E/A: 1.1 Ao V2 max: 136.2 cm/sec LV V1 max: 127.7 cm/sec MV dec slope: 269.6 cm/sec2 Ao max P.4 mmHg LV V1 max P.5 mmHg Ao V2 mean: 92.1 cm/sec LV V1 mean P.3 mmHg Ao mean P.9 mmHg LV V1 mean: 83.9 cm/sec Ao V2 VTI: 31.2 cm LV V1 VTI: 26.8 cm AV (velocity ratio): 0.86 GUERDA(I,D): 2.4 cm2 GUERDA(V,D): 2.6 cm2 SV(LVOT): 75.7 ml PA V2 max: 108.8 cm/sec TR max trey: 187.7 cm/sec PA max PG (full): 2.7 mmHg TR max P.1 mmHg ECHO/Echo Complete Interpretation Summary The left ventricular ejection fraction is 65 %. Mild tricuspid valve insufficiency. Ordering Physician: Jami Jewell Performed By: Fozia Mathews RDCS
[2023-05-21 13:30] VITALS: PULSE 57; RESP 16; O2SAT 95
--- NOTE | 2023-05-21 13:34 | NURSING ---
PCU OBS SUGGS CHEST PAIN
[2023-05-21 14:02] LABS: Troponin-I HS 5 pg/mL (3.0-54.0)
[2023-05-21 14:30] VITALS: BP 106/72; PULSE 53; RESP 15; O2SAT 94
[2023-05-21 15:45] VITALS: BP 95/77; PULSE 54; RESP 16; TEMP 36.6; O2SAT 98; BMI 23.1
[2023-05-21] MEDS: 0.9% Normal Saline (1000mL) 1,000 ML 75 ML IV (16:32)
[2023-05-21] MEDS: 0.9% Saline Lock 10 ML Syringe IV (16:33)
[2023-05-21 18:03] LABS: Troponin-I HS 6 pg/mL (3.0-54.0)
[2023-05-21 20:28] VITALS: BP 101/74; PULSE 58; RESP 20; TEMP 36.1; O2SAT 95
[2023-05-22 03:56] VITALS: BP 117/72; PULSE 62; RESP 18; TEMP 36.1; O2SAT 97
--- NOTE | 2023-05-22 05:55 | EKG12_ITS ---
Test Reason : AM EKG Blood Pressure : / mmHG Vent. Rate : 061 BPM Atrial Rate : 061 BPM P-R Int : 202 ms QRS Dur : 086 ms QT Int : 442 ms P-R-T Axes : 041 077 069 degrees QTc Int : 444 ms Normal sinus rhythm Normal ECG Confirmed by MILLY MARCUS, MECCA ([id number]), news video editor JONATHAN CAMACHO ([id number]) on 05/28/2023 10:16:10 AM Referred By: IFEANYI Confirmed By:MECCA ATKINS MD
[2023-05-22 06:18] LABS: Basophil# 0.04 X10^3/uL; Basophil% 0.7 % (0-1); Eosinophil# 0.35 X10^3/uL; Eosinophils% 6.1 % (0-5); Hematocrit 40.5 % (37-47); Hemoglobin 13.7 g/dL (12.0-15.0); Lymphocyte % 36.3 % (19-41); Mean Corp Hgb Conc 33.8 g/dL (32-36); Mean Corpuscular Hgb 31.1 pg (27.0-32.0); Mean Platelet Vol. 8.6 fl (6.2-12.0); Monocyte# 0.33 X10^3/uL; Monocyte% 5.7 % (0-10); NRBC Flagged by Analyzer 0 % (0-5); Neutrophil # 2.95 X10^3/uL (2.7-7.7); Platelet Count 272 K/mm3 (150-450); RBC Distribution Width CV 12.7 % (11.6-14.6); RBC Distribution Width SD 43.4 fl (35.1-43.9); White Blood Count 5.8 K/mm3 (4.4-11.0)
[2023-05-22 06:56] LABS: Anion Gap 4 (5-15); BUN 19 mg/dL (7-18); BUN/Creat Ratio 34.5 RATIO (10-20); Calcium,Total 8.5 mg/dL (8.5-10.1); Chloride 111 mmol/L (98-107); Cholesterol 160 mg/dL (200); Creatinine, Serum 0.55 mg/dL (0.55-1.02); EST Glomerular Filtration Rate 119 mL/min (>60); Est Glom Filt Rate - Afr Amer 144 mL/min (>60); Estimated Creatinine Clearance 108.36 ml/min; Glucose 95 mg/dL (74-106); High Density Lipoprotein 44 mg/dL; Potassium 4.1 mmol/L (3.5-5.1); Sodium Level 141 mmol/L (136-145); Thyroid Stim Hormone (TSH) 1.94 uIU/mL (0.358-3.74); Triglycerides 91 mg/dL; Very Low Density Lipoprotein 18 mg/dL (5-40)
[2023-05-22] MEDS: Aspirin E.C. 81 MG Tablet PO (07:58)
[2023-05-22 09:30] VITALS: BP 96/73; PULSE 65; RESP 16; TEMP 36.9; O2SAT 97
[2023-05-22] MEDS: Acetaminophen 325 MG Tablet 650 MG PO (11:34)
[2023-05-22 11:35] VITALS: BP 96/73; PULSE 65
[2023-05-22] MEDS: Clopidogrel Bisulfate 75 MG Tablet PO (11:35)
[2023-05-22] MEDS: Ezetimibe 10 MG Tablet PO (11:35)
[2023-05-22] MEDS: Metoprolol(XL)Succ 25 MG Tablet PO (11:35)
[2023-05-22] MEDS: Enoxaparin 40 MG/0.4 ML Syringe SC (11:36)
[2023-05-22] MEDS: 0.9% Saline Lock 10 ML Syringe IV (11:37)
--- NOTE | 2023-05-22 13:14 | STRESSREP ---
Stress Test Report Date: 05/22/2023 Procedure: Pharmacologic stress nuclear imaging study Indications: Chest pain Consent: Per the patient Procedure: The patient underwent pharmacologic (Regadenoson 0.4mg ) evaluation with a peak heart rate of 96 beats per minute (60%predicted maximal heart rate) and a peak blood pressure of 110/66 mmHg. The baseline ECG demonstrated sinus rhythm. The peak pharmacologic ECG demonstrated no ischemic changes. There were no cardiac dysrhythmias pretest, during pharmacologic infusion, or recovery. There was no complaint of chest discomfort during pharmacologic infusion or recovery. The patient was injected with 11.2 millicuries of technetium 99m Cardiolite and subsequently rest SPECT Cardiolite nuclear imaging was obtained in the horizontal long, vertical long, and short axis views. The patient underwent pharmacologic (Regadenoson) evaluation. The patient was injected with 34.5 millicuries of technetium 99m Cardiolite and subsequently stress SPECT Cardiolite nuclear imaging was obtained in the horizontal long, vertical long, and short axis views. A gated Cardiolite study at peak stress was obtained. The examination was stopped secondary to completion of protocol. Rest and stress SPECT Cardiolite nuclear imaging status post realignment, normalization, and attenuation correction demonstrate no fixed or reversible perfusion defect. There is end systolic thickening and brightening. The gated Cardiolite study demonstrates myocardial thickening and inward wall motion. The reported LVEF is 60%. Impression: 1. Pharmacologic (Regadenoson) evaluation 2. Peak pharmacologic ECG with no ischemic changes. 3. There were no cardiac dysrhythmias pretest, during pharmacologic infusion, or recovery. 5. Rest and stress SPECT Cardiolite nuclear imaging demonstrate relative uniform tracer uptake and myocardial perfusion appearing within normal limits. 6. The gated Cardiolite study reports an LVEF of 60%. This note was generated with [employer] software. It may contain incorrect words, spelling, and punctuation that were not noted in checking the note before signing.
--- NOTE | 2023-05-22 15:19 | DCINST_ITS ---
Discharge Instructions Diet Discharge Diet: - (DASH diet) Activity Discharge Activity: Return to Normal Activity Follow Up Care Test Results: Test results from this visit will be discussed in further detail at your follow- up appointment, if applicable. Discharge Plan Admission Admit Date/Time: 05/21/23 13:24 Primary Reason for Your Visit: Chest pain Attending Provider: Jami Jewell Primary Care Provider: Sarah Meredith Instructions Patient Instructions: ED Chest Pain, Noncardiac Additional Instructions / Restrictions: DISCHARGE INSTRUCTIONS PLEASE READ *Please take this with you to your next doctors appointment* -Please follow with your thoracic surgeon upon discharge -You had a normal stress test and echocardiogram, continue your home medications of aspirin and Plavix. -Would hold lisinopril at this time as your blood pressure was on the lower side. This will likely be resumed at a later time, will defer to your prescribing physician as to optimal timing -Please call your primary care provider's office upon discharge to schedule a hospital follow up within 1 week. -For any concerning signs or symptoms please call 911 or proceed to the nearest emergency department Discharge Orders/Prescriptions Prescriptions: Continued clopidogrel 75 mg tablet 75 mg PO DAILY Qty: 90 3RF ezetimibe [Zetia] 10 mg tablet 10 mg PO QDAY Qty: 90 3RF Patient Comments: cholesterol metoprolol succinate [Toprol XL] 25 mg tablet extended release 24 hr 25 mg PO DAILY Qty: 90 3RF aspirin 81 mg tablet,delayed release (DR/EC) 81 mg PO DAILY Qty: 90 3RF nitroglycerin 0.4 mg tablet, sublingual 0.4 mg sublingual Q5M PRN (Reason: Chest Pain) Qty: 25 3RF Held lisinopril 10 mg tablet 10 mg PO QDAY Qty: 90 3RF Hold Instructions: Resume on 05/29/23. Referrals / Follow Up: Sarah Meredith MD [Primary Care Provider] - Within 1 Week Herve Wall MD [Med Staff - Active Staff] - Within 1 Month Disposition Disposition (needs filled in before D/C Order can be placed): Home, Self Care
--- NOTE | 2023-05-22 15:22 | DS.PCM_ITS ---
Providers Date of Admission: 05/21/23 Date of Discharge: 05/22/23 Primary Care Physician: Dr. Sarah Meredith MD Reason For Visit: CHEST PAIN R/O Diagnosis Discharge Diagnosis (1) Chest pain: Status: Acute Code(s): R07.9 - Chest pain, unspecified (2) Nicotine dependence: Status: Chronic Code(s): F17.200 - Nicotine dependence, unspecified, uncomplicated (3) History of coronary artery stent placement: Status: Resolved Code(s): Z95.5 - Presence of coronary angioplasty implant and graft Plan #Chest pain- non cardiac #Coronary artery disease w/ hx stent placement #Tobacco use Medications at Discharge Home Medications aspirin 81 mg tablet,delayed release 81 mg PO DAILY #90 tabs 03/13/18 nitroglycerin 0.4 mg sublingual tablet 0.4 mg sublingual Q5M PRN Chest Pain #25 tabs 09/22/18 clopidogrel 75 mg tablet 75 mg PO DAILY #90 tabs 10/27/20 ezetimibe 10 mg tablet (Zetia) 10 mg PO QDAY #90 tabs 10/27/20 lisinopril 10 mg tablet 10 mg PO QDAY #90 tabs 10/27/20 metoprolol succinate 25 mg tablet,extended release 24 hr (Toprol XL) 25 mg PO DAILY #90 tabs 10/27/20 Hospital Course Procedures Stress test and Transthoracic echo Summary of Care Provided Minutes Spent on Discharge: 35 Hospital Course: REAGAN MARTÍNEZ, is a 63 F with a history of hypertension, coronary artery disease with 7 stents, and tobacco use presented to [facility] 05/21/2023 with several minutes of chest pressure. The feeling was contract ion-like and lasted maybe minutes with no associated symptoms and there was no exacerbating or relieving factor. Symptoms resolved completely prior to arrival and she had not had symptoms recently before that or after that. She also was symptom-free in the hospital. Given her high risk she was brought in for echocardiogram and stress test both of which were negative. Given her description of the pain this is not classic for cardiac in nature and she had normal troponin, EKG, stress and echo and no further symptoms. Patient stable for discharge. 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 No other physical complaints Physical Exam Narrative General: Alert, oriented, no apparent distress HEENT: Atraumatic, normocephalic Eyes: Anicteric, normal conjunctiva, extraocular movements grossly intact Neck: Supple Respiratory: Clear to auscultation bilaterally, normal respiratory effort Cardiovascular: Regular rate and rhythm GI: Soft, nontender, nondistended Extremities: No edema Musculoskeletal: Moving all extremities Neuro: No overt focal neurological deficits Skin: No rashes appreciated Psych: Cooperative Weight / BMI Weight Weight: 68.8 kg Body Mass Index (BMI) 23.1 ABG / Lab / Microbiology Data 05/22/23 05:21 05/22/23 05:21 Laboratory: Laboratory Results - last 24 hr 05/21/23 17:09: Troponin I High Sens 6 05/22/23 05:21: WBC 5.8, RBC 4.40, Hgb 13.7, Hct 40.5, MCV 92.0, MCH 31.1, MCHC 33.8, RDW Std Deviation 43.4, RDW Coeff of Jori 12.7, Plt Count 272, MPV 8.6, Immature Gran % (Auto) 0.200, Neut % (Auto) 51.0, Lymph % (Auto) 36.3, [place] % (Auto) 5.7, Eos % (Auto) 6.1 H, Baso % (Auto) 0.7, Absolute Neuts (auto) 3.0, Absolute Lymphs (auto) 2.10, Nucleated RBC % 0, Sodium 141, Potassium 4.1, Chloride 111 H, Carbon Dioxide 26.0, Anion Gap 4 L, BUN 19 H, Creatinine 0.55, Estim Creat Clear Calc 108.36, Est GFR (MDRD) Af Amer 144, Est GFR (MDRD) Non-Af 119, BUN/Creatinine Ratio 34.5 H, Glucose 95, Calcium 8.5, Triglycerides 91, Cholesterol 160, LDL Cholesterol 98, VLDL Cholesterol 18, HDL Cholesterol 44, TSH 1.94 Radiography Diagnostic Testing: Radiology Impression Echocardiogram 05/21/23 13:28 Interpretation Summary The left ventricular ejection fraction is 65 %. Mild tricuspid valve insufficiency. Ordering Physician: Jami Jewell Performed By: Fozia Mathews YEN D/C Instructions Discharge Diet: - (DASH diet) Meaningful Use Info Meaningful Use Diagnoses (Choose all that apply): None applicable Discharge Plan Admission Admit Date/Time: 05/21/23 13:24 Primary Reason for Your Visit: Chest pain Attending Provider: Jami Jewell Primary Care Provider: Sarah Meredith Instructions Patient Instructions: ED Chest Pain, Noncardiac Additional Instructions / Restrictions: DISCHARGE INSTRUCTIONS PLEASE READ *Please take this with you to your next doctors appointment* -Please follow with your warehouse representative upon discharge -You had a normal stress test and echocardiogram, continue your home medications of aspirin and Plavix. -Would hold lisinopril at this time as your blood pressure was on the lower side. This will likely be resumed at a later time, will defer to your prescribing physician as to optimal timing -Please call your primary care provider's office upon discharge to schedule a hospital follow up within 1 week. -For any concerning signs or symptoms please call 911 or proceed to the nearest emergency department Discharge Orders/Prescriptions Prescriptions: Continued clopidogrel 75 mg tablet 75 mg PO DAILY Qty: 90 3RF ezetimibe [Zetia] 10 mg tablet 10 mg PO QDAY Qty: 90 3RF Patient Comments: cholesterol metoprolol succinate [Toprol XL] 25 mg tablet extended release 24 hr 25 mg PO DAILY Qty: 90 3RF aspirin 81 mg tablet,delayed release (DR/EC) 81 mg PO DAILY Qty: 90 3RF nitroglycerin 0.4 mg tablet, sublingual 0.4 mg sublingual Q5M PRN (Reason: Chest Pain) Qty: 25 3RF Held lisinopril 10 mg tablet 10 mg PO QDAY Qty: 90 3RF Hold Instructions: Resume on 05/29/23. Referrals / Follow Up: Sarah Meredith MD [Primary Care Provider] - Within 1 Week Herve Wall MD [Med Staff - Active Staff] - Within 1 Month Disposition Disposition (needs filled in before D/C Order can be placed): Home, Self Care Charges/Coding Visit Charges Inpatient E&M: 09627 Disch Hosp >30min
[2023-05-22 15:30] VITALS: BP 100/70; PULSE 63; RESP 14; TEMP 37; O2SAT 96
[2023-05-22 16:55] VITALS: BP 108/74; PULSE 61; RESP 18; TEMP 36.9; O2SAT 98
== END 2023-05-22 17:03 | disposition home or self-care (01) ==
LOC: ED 12:54 → PCU 13:34
PROVIDERS: Physician Assistant; Admitting Provider Internal Medicine; Emergency Provider Emergency Medicine; PCP Internal Medicine; Visit Provider Internal Medicine
DX: R07.89 Other chest pain (principal); Z95.5 Presence of coronary angioplasty implant and graft; R06.02 Shortness of breath; F17.200 Nicotine dependence, unspecified, uncomplicated; I25.10 Atherosclerotic heart disease of native coronary artery without angina pectoris; Z79.82 Long term (current) use of aspirin; I10 Essential (primary) hypertension; E78.5 Hyperlipidemia, unspecified; Z79.02 Long term (current) use of antithrombotics/antiplatelets; I25.2 Old myocardial infarction; Z79.899 Other long term (current) drug therapy; I07.1 Rheumatic tricuspid insufficiency
CPT/HCPCS: 36415; 71045; 78452; 80048; 80061; 84443; 84484; 85025; 93005; 93017; 93306; 96360; 96361; 96372; 99221; 99285; A9500; J7030; A4216; G0378; J2785

== ENCOUNTER → 2024-12-04 | Outpatient (CLI) | payer BC, SELFPAY ==
[2024-12-04 12:24] LABS: Absolute Lymphocyte Count 3.47 X10^3/uL (0.83-4.51); Absolute Neutrophil Count 3.9 X10^3/uL (2.0-7.7); Basophil# 0.08 X10^3/uL; Eosinophil# 0.17 X10^3/uL; Eosinophils% 2.1 % (0-5); Hematocrit 44.2 % (37-47); Hemoglobin 15.5 g/dL (12.0-15.0); Lymphocyte # 3.47 X10^3/ul (0.83-4.51); Lymphocyte % 42.7 % (19-41); Mean Corp Hgb Conc 35.1 g/dL (32-36); Mean Corpuscular Hgb 31.4 pg (27.0-32.0); Mean Corpuscular Volume 89.7 fL (81-99); Mean Platelet Vol. 8.4 fl (6.2-12.0); Monocyte# 0.48 X10^3/uL; Monocyte% 5.9 % (0-10); NRBC Flagged by Analyzer 0 % (0-5); Neutrophil # 3.91 X10^3/uL (2.7-7.7); Neutrophil % 48.1 % (47-70); POSITIVE MORPHOLOGY YES; Platelet Count 300 K/mm3 (150-450); RBC Distribution Width CV 12.8 % (11.6-14.6); RBC Distribution Width SD 42.8 fl (35.1-43.9); Red Blood Count 4.93 M/mm3 (4.2-5.4); White Blood Count 8.1 K/mm3 (4.4-11.0)
[2024-12-04 12:28] LABS: Differential Indicated SCAN CRITERIA MET
[2024-12-04 13:31] LABS: AST(SGOT) 25 U/L (<=31); Alanine Aminotransfer ALT/SGPT 21 U/L (<=34); Albumin, Serum 4.6 g/dL (3.4-4.8); Alkaline Phosphatase 68 U/L (35-104); Anion Gap 12 (5-15); BUN 28 mg/dL (4-19); BUN/Creat Ratio 35.5 RATIO (10-20); Bilirubin, Direct 0.11 mg/dL (0.00-0.30); Calcium,Total 9.3 mg/dL (7.6-11.0); Chloride 101 mmol/L (98-108); Cholesterol 212 mg/dL (<=200); Creatinine, Serum 0.78 mg/dL (0.70-1.20); EST Glomerular Filtration Rate 86 (>60); Globulin 2.6 g/dL (2.2-4.2); Glucose 152 mg/dL (70-99); High Density Lipoprotein 51 mg/dL; Low Density Lipoprotein Calc. 129 mg/dL; Potassium 4.1 mmol/L (3.3-5.1); Protein, Total 7.3 g/dL (5.9-8.4); Sodium Level 135 mmol/L (133-145); Total Bilirubin 0.25 mg/dL (0.00-1.30); Triglycerides 161 mg/dL; Very Low Density Lipoprotein 32 mg/dL (5-40); cholesterol:hdl ratio screen 4.19
[2024-12-04 13:37] LABS: Atypical Lymphocyte 2+ %; Platelet Estimate A (ADEQ)
[2024-12-04 13:38] LABS: Pathologist Review May foll
== END | disposition home or self-care (01) ==
LOC: LAB 11:55
PROVIDERS: PCP Internal Medicine; Referring Provider Nurse Practitioner Gerontology; Visit Provider Nurse Practitioner Gerontology
DX: E78.5 Hyperlipidemia, unspecified (principal); R53.83 Other fatigue
CPT/HCPCS: 36415; 80048; 80061; 80076; 84443; 85025